=== PATIENT | male | born 1950 | race Caucasian/White ===

== ENCOUNTER 2016-10-13 21:40 | Observation (INO) | payer MEDICAID, OTHER ==
[2016-10-13 21:50] VITALS: BMI 37.8
--- NOTE | 2016-10-13 22:23 | ED PDOC ---
Arrival/HPI - General Chief Complaint: Abdominal Pain Time Seen by Provider: 10/13/16 21:58 Historian: Patient, Family - History of Present Illness Narrative History of Present Illness (Text): 10/13/16 22:17 Stephanie Williamson is a 66 year old male, with a history of hypertension, and diabetes, presents to the emergency department complaining of posterior head pain and left lateral rib/chest pain following a questionable syncopal episode. Patient's son, who accompanied the patient, states that patient called him after a supposed syncopal episode, but patient was unable to recall what happened. There is a superficial abrasion on the back of the head due to possible fall during the syncopal episode. Patient was evaluated by his PMD at [facility] after the incident, but states that symptoms are unresolved. Denies any dizziness, neck pain, difficulty breathing, back pain, abdominal pain, nausea, vomiting, diarrhea, urinary symptoms, or any other complaints at this time. Time/Duration: Other (earlier today ) Symptom Onset: Sudden Symptom Course: Unchanged Severity Level: Mild Past Medical History - Provider Review Nursing Documentation Reviewed: Yes - Infectious Disease Hx of Infectious Diseases: None - Tetanus Immunization Tetanus Immunization: Unknown - Reproductive Currently : No Currently Lactating: No - Cardiac Hx Hypertension: Yes - Pulmonary Hx Respiratory Disorders: No - Neurological Hx Transient Ischemic Attacks (TIA): Yes (r/o pt has speech difficulty) - HEENT Hx HEENT Disorder: No - Renal Hx Renal Disorder: No - Endocrine/Metabolic Hx Endocrine Disorders: Yes ("some type of diabetes") - Hematological/Oncological Hx Blood Disorders: No - Integumentary Hx Dermatological Disorder: No - Musculoskeletal/Rheumatological Hx Arthritis: Yes - Gastrointestinal Hx Gastrointestinal Disorders: No - Genitourinary/Gynecological Hx Genitourinary Disorders: No - Psychiatric Hx Psychophysiologic Disorder: No Hx Substance Use: No - Past Surgical History Past Surgical History: No Previous - Anesthesia Hx Anesthesia: No Hx Anesthesia Reactions: No Hx Malignant Hyperthermia: No - Suicidal Assessment Feels Threatened In Home Enviroment: No Family/Social History - Physician Review Nursing Documentation Reviewed: Yes Family/Social History: No Known Family HX Smoking Status: Never Smoked Hx Alcohol Use: No Hx Substance Use: No Hx Substance Use Treatment: No Allergies/Home Meds Allergies/Adverse Reactions: Allergies No Known Allergies Allergy (Verified 03/11/13 00:30) Review of Systems - Physician Review All systems were reviewed & negative as marked: Yes - Review of Systems Constitutional: Normal. absent: Fatigue, Fevers Respiratory: Normal. absent: SOB, Cough, Sputum Cardiovascular: Chest Pain (left lateral rib pain/ chest pain ). absent: Palpitations Gastrointestinal: absent: Abdominal Pain, Nausea, Vomiting, Appetite Changes Neurological: Other (abrasion on posterior head ). absent: Dizziness, Focal Weakness, Gait Changes, Speech Changes, Facial Droop Psychiatric: Normal Physical Exam Vital Signs Reviewed: Yes Vital Signs Temp Pulse Resp BP Pulse Ox 10/14/16 03:17 78 18 144/95 H 98 10/14/16 01:09 82 16 151/69 H 10/13/16 21:50 97.9 F 122 H 22 168/124 H 96 Temperature: Afebrile Blood Pressure: Hypertensive Pulse: Tachycardic Respiratory Rate: Normal Appearance: Positive for: Well-Appearing, Non-Toxic, Comfortable Pain Distress: None Mental Status: Positive for: Alert and Oriented X 3 - Systems Exam Head: Present: Normocephalic, Abrasion (posterior head ) Pupils: Present: PERRL Conjunctiva: Present: Normal Mouth: Present: Moist Mucous Membranes. No: Dry Neck: Present: Normal Range of Motion. No: MIDLINE TENDERNESS, Paraspinal Tenderness Respiratory/Chest: Present: Clear to Auscultation, Good Air Exchange. No: Respiratory Distress, Accessory Muscle Use Cardiovascular: Present: Regular Rate and Rhythm, Normal S1, S2. No: Murmurs Abdomen: Present: Normal Bowel Sounds. No: Tenderness, Distention, Peritoneal Signs, Rebound, Guarding Back: Present: Normal Inspection. No: CVA Tenderness, Midline Tenderness, Paraspinal Tenderness Upper Extremity: Present: Normal Inspection. No: Cyanosis, Edema Lower Extremity: Present: Normal Inspection. No: Edema Neurological: Present: GCS=15, CN II-XII Intact, Speech Normal, Motor Func Grossly Intact, Normal Sensory Function Skin: Present: Warm, Dry, Normal Color. No: Rashes Psychiatric: Present: Alert, Oriented x 3, Normal Insight, Normal Concentration Medical Decision Making ED Course and Treatment: 10/13/16 22:25 Impression: A 66 year old male who presents to the emergency department complaining of posterior head pain and left sided chest/rib pain s/p questionable syncopal episode case d/w dr grullon and medical doctor for obs Plan: -- CT chest, abdomen, pelvis -- CT Head -- EKG -- Labs, cardiac enzymes -- Alcohol level -- Urinalysis -- Reassess and disposition Progress Notes: 10/13/16 22:31 EKG reviewed by me: Sinus tachycardia @ 116 bpm with occasional premature ventricular complexes. possible left atrial enlargement. Left ventricular hypertrophy. 10/15/16 22:20 - Lab Interpretations Lab Results: 10/13/16 23:10 10/13/16 23:10 Lab Results 10/13/16 23:10: Alcohol, Quantitative < 10 10/13/16 23:10: Sodium 134, Potassium 4.0, Chloride 98, Carbon Dioxide 27, Anion Gap 13, BUN 21, Creatinine 1.2, Est GFR ( Amer) > 60, Est GFR (Non- Af Amer) > 60, Random Glucose 279 H, Calcium 9.5, Phosphorus 3.7, Magnesium 2.0 , Total Bilirubin 0.7, AST 26, ALT 30, Alkaline Phosphatase 103, Lactate Dehydrogenase 557, Total Creatine Kinase 253 H, CK-MB (CK-2) 1.5, CK-MB (CK-2) % Cancelled, Troponin I < 0.01, Total Protein 7.8, Albumin 4.1, Globulin 3.7, Albumin/Globulin Ratio 1.1 10/13/16 23:10: PT 10.7, INR 0.99, APTT 27.3 10/13/16 23:10: WBC 8.9, RBC 5.18, Hgb 14.6, Hct 42.5, MCV 82.0, MCH 28.2, MCHC 34.4, RDW 13.6, Plt Count 249, MPV 8.9, Gran % 71.4 H, Lymph % (Auto) 17.0 L, [place] % (Auto) 10.4 H, Eos % (Auto) 1.0 L, Baso % (Auto) 0.2, Gran # 6.34, Lymph # 1.5, [place] # 0.9 H, Eos # 0.1, Baso # 0.02 10/13/16 21:12: Urine Color Yellow, Urine Appearance Sl cloudy, Urine pH 6.0, Ur Specific [place] 1.025, Urine Protein 30 H, Urine Glucose (UA) >=1000, Urine Ketones Negative, Urine Blood Negative, Urine Nitrate Negative, Urine Bilirubin Negative, Urine Urobilinogen 0.2, Ur Leukocyte Esterase Negative, Urine RBC 0 - 2, Urine WBC 0 - 2, Ur Epithelial Cells 0 - 2, Urine Bacteria Rare I have reviewed the lab results: Yes - RAD Interpretation Narrative RAD Interpretations (Text): EXAM: CT Head Without Intravenous Contrast FINDINGS: Brain: No acute intracranial hemorrhage. Age-appropriate periventricular white matter disease. No edema. Ventricles: Age-appropriate ventriculomegaly. Bones: No acute displaced fracture. Sinuses: Unremarkable as visualized. No acute sinusitis. Mastoid air cells: Unremarkable as visualized. No mastoid effusion. IMPRESSION: No acute intracranial hemorrhage, or suspicious mass effect Dictated and Authenticated by: Nataliia Camacho MD 10/14/16 02:10 EXAM: CT Abdomen and Pelvis Without Intravenous Contrast FINDINGS: Lower thorax: The bilateral lung bases are clear. ABDOMEN: Liver: No acute findings. No perihepatic fluid. Gallbladder and bile ducts: No acute finding. No calcified stones. No intra- extrahepatic biliary ductal dilation. Pancreas: Limited evaluation secondary to the lack of intravenous contrast. No peripancreatic fluid. Spleen: No acute findings. No perisplenic fluid Adrenals: No acute findings. Kidneys and ureters: No obstructing stones. No hydronephrosis. No perinephric fluid. PELVIS: Bladder: No acute findings. Reproductive: No acute findings. ABDOMEN and PELVIS: Stomach and bowel: No acute findings. Large fat containing right inguinal hernia is noted. Peritoneum: No acute findings. Lymph nodes: Limited evaluation without intravenous contrast. Vasculature: No aortic aneurysm. Bones: No acute fracture. Severe degenerative disease is identified within the lower lumbar spine, specifically at the level of L5/S1, with osteophyte formation, disc space narrowing, endplate changes and facet arthropathy. IMPRESSION: No hollow or solid visceral organ injury. Degenerative disease within the lumbar spine. Fat containing right inguinal hernia. EXAM: CT Chest Without Intravenous Contrast FINDINGS: Lungs: No mass. No consolidation. Pleural spaces: No significant effusion. No pneumothorax or hemothorax. Heart: The heart is enlarged, without significant pericardial effusion. Vasculature: The great vessels are intact. No aneurysmal dilatation of the thoracic aortic. Lymph nodes: Scattered lymph nodes within the mediastinum and supraclavicular region, all nonpathologically enlarged, a nonspecific finding. Bones: No acute fractures within either the sternum, ribs or thoracic vertebral bodies. No scapular or clavicular fractures are noted. Cortical thickening and enlargement of the midportion of the sternum is identified, possibly representing prior injury. This is best identified on series 601, image 66 and series 2, image 57. IMPRESSION: No significant intrathoracic injury, as detailed above Dictated and Authenticated by: Nataliia Camacho MD Radiology Orders: 10/13/16 22:26 CHEST,ABDOMEN, PELVIS W/O CONT [CT] Stat HEAD W/O CONTRAST [CT] Stat Driller'S Offsider: Radiologist - Medication Orders Current Medication Orders: Discontinued Medications Acetaminophen (Tylenol 325mg Tab) 650 mg PO Q6H PRN PRN Reason: Pain, Mild (1-3) Atenolol (Tenormin) 100 mg PO DAILY [facility] Last Admin: 10/15/16 10:32 Dose: 100 mg Atorvastatin Calcium (Lipitor) 20 mg PO DIN [facility] Atorvastatin Calcium (Lipitor) 40 mg PO DIN [facility] Last Admin: 10/14/16 16:36 Dose: 40 mg Clopidogrel Bisulfate (Plavix) 75 mg PO DAILY [facility] Last Admin: 10/15/16 10:31 Dose: 75 mg Glipizide (Glucotrol Xl) 5 mg PO DAILY [facility] Last Admin: 10/15/16 10:32 Dose: 5 mg Guaifenesin (Robitussin) 100 mg PO Q4H PRN PRN Reason: Cough Sodium Chloride (Sodium Chloride 0.9%) 1,000 mls @ 60 mls/hr IV .[id number] [facility] Last Admin: 10/14/16 21:37 Dose: 60 mls/hr Insulin Human Regular (Humulin R Low) 0 units SC ACHS [facility] PRN Reason: Protocol Last Admin: 10/15/16 12:24 Dose: 1 units Lisinopril (Zestril) 40 mg PO DAILY [facility] Last Admin: 10/15/16 10:32 Dose: 40 mg Metformin HCl (Glucophage) 850 mg PO BID [facility] Last Admin: 10/15/16 10:30 Dose: 850 mg Morphine Sulfate (Morphine) 1 mg IVP Q4H PRN PRN Reason: Pain, severe (8-10) Last Admin: 10/15/16 04:56 Dose: 1 mg Non-Formulary Medication (Diclofenac Sodium [Diclofenac Sodium D-R]) 75 mg PO DAILY [facility] Non-Formulary Medication (Hydrochlorothiazide/Triamter [Triamterene- Hydrochlorothiazide 25 Mg-37.5 Mg]) 1 tab PO DAILY [facility] Pantoprazole Sodium (Protonix Ec Tab) 40 mg PO 0630 [facility] Last Admin: 10/15/16 05:53 Dose: 40 mg Tramadol HCl (Ultram) 50 mg PO TID PRN PRN Reason: Pain, moderate (4-7) Last Admin: 10/15/16 10:31 Dose: 50 mg Re-Assess: JUANITO Pain Assessment Document 10/15/16 11:31 DEL (Rec: 10/15/16 11:49 DEL [id number]) Pain Reassessment Is this a pain reassessment? Yes Sleep Is patient sleeping during reassessment? No Presence of Pain Presence of Pain No - Scribe Statement The provider has reviewed the documentation as recorded by the Nadia Feliciano Provider Attestation: All medical record entries made by the Nadia were at my direction and personally dictated by me. I have reviewed the chart and agree that the record accurately reflects my personal performance of the history, physical exam, medical decision making, and the department course for this patient. I have also personally directed, reviewed, and agree with the discharge instructions and disposition. Disposition/Present on Arrival - Present on Arrival Any Indicators Present on Arrival: No History of DVT/PE: No History of Uncontrolled Diabetes: No Urinary Catheter: No History of Decub. Ulcer: No History Surgical Site Infection Following: None - Disposition Have Diagnosis and Disposition been Completed?: Yes Diagnosis: Syncope Disposition: HOSPITALIZED Disposition Time: 01:00 Condition: GOOD
[2016-10-13 23:18] LABS: ADD MANUAL DIFF? NO
[2016-10-13 23:24] LABS: BASO # 0.02 K/mm3 (0.0-2.0); BASO % 0.2 % (0.0-3.0); EOS # 0.1 (0.0-0.7); GRAN # 6.34 (1.4-6.5); GRAN % 71.4 % (50.0-68.0); HEMATOCRIT 42.5 % (42.0-52.0); LYMPH # 1.5 (1.2-3.4); MEAN CORPUSCULAR HEMOGLOBIN 28.2 pg (25.0-35.0); MEAN CORPUSCULAR HGB CONC 34.4 g/dl (31.0-37.0); MEAN PLATELET VOLUME 8.9 fl (7.0-11.0); MONO # 0.9 (0.1-0.6); MONO % 10.4 % (1.0-6.0); PLATELET COUNT 249 10^3/uL (120.0-450.0); RED CELL DISTRIBUTION WIDTH 13.6 % (11.5-14.5); WHITE BLOOD COUNT 8.9 10^3/ul (4.5-11.0)
[2016-10-13 23:32] LABS: ALB/GLOB RATIO 1.1 (1.1-1.8); ALKALINE PHOSPHATASE 103 U/L (38-133); ALT/SGPT 30 U/L (7-56); AST/SGOT 26 U/L (15-59); BILIRUBIN,TOTAL 0.7 mg/dL (0.2-1.3); BLOOD UREA NITROGEN 21 mg/dL (7-21); CALCIUM 9.5 mg/dL (8.4-10.5); CARBON DIOXIDE 27 mmol/L (21-33); CHLORIDE 98 mmol/L (98-107); GFR AFRICAN-AMERICAN > 60; GLUCOSE,RANDOM 279 mg/dL (70-110); PHOSPHOROUS 3.7 mg/dL (2.5-4.5); SODIUM 134 mmol/L (132-148); TOTAL PROTEIN 7.8 g/dL (5.8-8.3)
[2016-10-13 23:40] LABS: INR 0.99 (0.93-1.08); PARTIAL THROMBOPLASTIN TIME 27.3 Seconds (23.7-30.8)
[2016-10-13 23:51] LABS: TROPONIN I < 0.01 ng/mL
[2016-10-14 01:24] LABS: URINE BILIRUBIN NEGATIVE (NEGATIVE); URINE BLOOD NEGATIVE (NEGATIVE); URINE GLUCOSE (UA) >=1000 mg/dL (NEGATIVE); URINE KETONE NEGATIVE (NEGATIVE); URINE LEUKOCYTE ESTERASE NEGATIVE Leu/uL (NEGATIVE); URINE PROTEIN 30 mg/dL (<30 mg/dL); URINE UROBILINOGEN 0.2 E.U./dL (<1 E.U./dL)
[2016-10-14 01:25] LABS: URINE APPEARANCE SL CLOUDY (CLEAR); URINE COLOR YELLOW (YELLOW)
[2016-10-14 01:36] LABS: URINE BACTERIA RARE (NEG); URINE EPITHELIAL CELLS 0 - 2 /hpf (0-5); URINE RBC 0 - 2 /hpf (0-2); URINE WBC 0 - 2 /hpf (0-6)
--- NOTE | 2016-10-14 01:50 | CT ---
EXAM: CT Head Without Intravenous Contrast CLINICAL HISTORY: 66 years old, male; Injury or trauma; Fall; Initial encounter; Concussion / head injury TECHNIQUE: Axial computed tomography images of the head/brain without intravenous contrast. This CT exam was performed using one or more of the following dose reduction techniques: automated exposure control, adjustment of the mA and/or kV according to patient size, and/or use of iterative reconstruction technique. COMPARISON: No relevant prior studies available. FINDINGS: Brain: No acute intracranial hemorrhage. Age-appropriate periventricular white matter disease. No edema. Ventricles: Age-appropriate ventriculomegaly. Bones: No acute displaced fracture. Sinuses: Unremarkable as visualized. No acute sinusitis. Mastoid air cells: Unremarkable as visualized. No mastoid effusion. IMPRESSION: No acute intracranial hemorrhage, or suspicious mass effect.
--- NOTE | 2016-10-14 01:58 | CT ---
EXAM: CT Abdomen and Pelvis Without Intravenous Contrast CLINICAL HISTORY: 66 years old, male; Injury or trauma; Fall; Initial encounter; Blunt; Generalized; Blunt trauma (contusions or hematomas) TECHNIQUE: Axial computed tomography images of the abdomen and pelvis without intravenous contrast. This CT exam was performed using one or more of the following dose reduction techniques: automated exposure control, adjustment of the mA and/or kV according to patient size, and/or use of iterative reconstruction technique. Coronal and sagittal reformatted images were created and reviewed. COMPARISON: No relevant prior studies available. FINDINGS: Lower thorax: The bilateral lung bases are clear. ABDOMEN: Liver: No acute findings. No perihepatic fluid. Gallbladder and bile ducts: No acute finding. No calcified stones. No intra-extrahepatic biliary ductal dilation. Pancreas: Limited evaluation secondary to the lack of intravenous contrast. No peripancreatic fluid. Spleen: No acute findings. No perisplenic fluid Adrenals: No acute findings. Kidneys and ureters: No obstructing stones. No hydronephrosis. No perinephric fluid. PELVIS: Bladder: No acute findings. Reproductive: No acute findings. ABDOMEN and PELVIS: Stomach and bowel: No acute findings. Large fat containing right inguinal hernia is noted. Peritoneum: No acute findings. Lymph nodes: Limited evaluation without intravenous contrast. Vasculature: No aortic aneurysm. Bones: No acute fracture. Severe degenerative disease is identified within the lower lumbar spine, specifically at the level of L5/S1, with osteophyte formation, disc space narrowing, endplate changes and facet arthropathy. IMPRESSION: No hollow or solid visceral organ injury. Degenerative disease within the lumbar spine. Fat containing right inguinal hernia. EXAM: CT Chest Without Intravenous Contrast CLINICAL HISTORY: 66 years old, male; Injury or trauma; Fall; Initial encounter; Blunt; Generalized; Blunt trauma (contusions or hematomas) TECHNIQUE: Axial computed tomography images of the chest without intravenous contrast. This CT exam was performed using one or more of the following dose reduction techniques: automated exposure control, adjustment of the mA and/or kV according to patient size, and/or use of iterative reconstruction technique. Coronal and sagittal reformatted images were created and reviewed. COMPARISON: No relevant prior studies available. FINDINGS: Lungs: No mass. No consolidation. Pleural spaces: No significant effusion. No pneumothorax or hemothorax. Heart: The heart is enlarged, without significant pericardial effusion. Vasculature: The great vessels are intact. No aneurysmal dilatation of the thoracic aortic. Lymph nodes: Scattered lymph nodes within the mediastinum and supraclavicular region, all non-pathologically enlarged, a nonspecific finding. Bones: No acute fractures within either the sternum, ribs or thoracic vertebral bodies. No scapular or clavicular fractures are noted. Cortical thickening and enlargement of the midportion of the sternum is identified, possibly representing prior injury. This is best identified on series 601, image 66 and series 2, image 57. IMPRESSION: No significant intrathoracic injury, as detailed above
[2016-10-14] MEDS: Sodium Chloride 0.9% 1,000 ML IV SCH ×2 (05:03→21:37)
--- NOTE | 2016-10-14 05:05 | CP.PCM.HP ---
<Katherine Arzate - Last Filed: 10/14/16 04:41> History of Present Illness - History of Present Illness History of Present Illness: 63 year old Brandi speaking male with past medical history of hypertension, CVA (residual speech difficulties), dyslipidemia and diabetes presents after having a syncope episode this afternoon at 2pm. Patient reports he was shopping at an [employer] grocery store and suddenly lost consciousness and fell backwards. Patient was unable to recall further details. After regaining consciousness, patient start experiencing posterior head pain and left sided rib pain. The pain are worse with motion. He denies of having urinary or fecal incontinence. Patient's son took patient to PMD Dr. Wen soon after. PMD recommended patient to go to the ER to be evaluated. Patient denies weakness, night sweats, recent weight change, fever, chills, shortness of breath, chest pain, abdominal pain, nausea, vomiting, diarrhea, constipation, or urinary symptoms. PMD: Dr. Wen in [place] PMHx: HTN, CVA, dyslipidemia, DM PSHx: denies Allergy: NKDA Social History: Denies tobacco, alcohol or other drug use Family Hx: unknown Home meds: benazepril, glucotrol, lipitor, plavix, tenormin (please verify with Pharmacy) Present on Admission - Present on Admission Any Indicators Present on Admission: No History of DVT/PE: No History of Uncontrolled Diabetes: No Review of Systems - Constitutional Constitutional: As Per HPI. absent: Chills, Fever, Weakness - EENT Eyes: As Per HPI. absent: Blurred Vision, Change in Vision Ears: As Per HPI. absent: Disequilibrium, Dizziness Nose/Mouth/Throat: As Per HPI. absent: Nasal Trauma, Dysphagia, Sore Throat Additional comments: posterior head pain - Cardiovascular Cardiovascular: As Per HPI, Syncope. absent: Chest Pain, Dyspnea, Palpitations , Pedal Edema - Respiratory Respiratory: As Per HPI. absent: Cough, Dyspnea, Hemoptysis, Wheezing - Gastrointestinal Gastrointestinal: As Per HPI. absent: Abdominal Pain, Constipation, Diarrhea, Loose Stools, Nausea, Vomiting - Genitourinary Genitourinary: As Per HPI. absent: Urinary Incontinence, Urinary Frequency, Urinary Hesitance - Musculoskeletal Musculoskeletal: As Per HPI, Other (left sided rib pain). absent: Tingling - Integumentary Integumentary: As Per HPI. absent: Erythema, Pruritus, Swelling - Neurological Neurological: As Per HPI, Syncope. absent: Loss of Vision, Tingling, Tremor, Vertigo, Weakness - Psychiatric Psychiatric: As Per HPI. absent: Anxiety, Irritability - Endocrine Endocrine: As Per HPI - Hematologic/Lymphatic Hematologic: As Per HPI Past Patient History - Infectious Disease Hx of Infectious Diseases: None - Tetanus Immunizations Tetanus Immunization: Unknown - Past Social History Smoking Status: Never Smoked - CARDIAC Hx Hypertension: Yes - PULMONARY Hx Respiratory Disorders: No - NEUROLOGICAL Hx Transient Ischemic Attacks (TIA): Yes (r/o pt has speech difficulty) - HEENT Hx HEENT Problems: No - RENAL Hx Chronic Kidney Disease: No - ENDOCRINE/METABOLIC Hx Endocrine Disorders: Yes ("some type of diabetes") - HEMATOLOGICAL/ONCOLOGICAL Hx Blood Disorders: No - INTEGUMENTARY Hx Dermatological Problems: No - MUSCULOSKELETAL/RHEUMATOLOGICAL Hx Arthritis: Yes - GASTROINTESTINAL Hx Gastrointestinal Disorders: No - GENITOURINARY/GYNECOLOGICAL Hx Genitourinary Disorders: No - PSYCHIATRIC Hx Psychophysiologic Disorder: No Hx Substance Use: No - SURGICAL HISTORY Hx Surgeries: No - ANESTHESIA Hx Anesthesia: No Hx Anesthesia Reactions: No Hx Malignant Hyperthermia: No Meds Allergies/Adverse Reactions: Allergies Allergy/AdvReac Type Severity Reaction Status Date / Time No Known Allergies Allergy Verified 03/11/13 00:30 Physical Exam - Constitutional Appears: Non-toxic, No Acute Distress - Head Exam Head Exam: NORMOCEPHALIC. absent: NORMAL INSPECTION (posterior head erythematous lesion approximately 3''x2'' in size) - Eye Exam Eye Exam: EOMI, Normal appearance, PERRL - ENT Exam ENT Exam: Mucous Membranes Moist - Neck Exam Neck exam: Positive for: Normal Inspection - Respiratory Exam Respiratory Exam: Clear to Auscultation Bilateral, NORMAL BREATHING PATTERN. absent: Rhonchi, Wheezes, Respiratory Distress Additional comments: Left upper rib tenderness, no ecchymosis, no erythema appreciated - Cardiovascular Exam Cardiovascular Exam: REGULAR RHYTHM, RRR, +S1, +S2 - GI/Abdominal Exam GI & Abdominal Exam: Normal Bowel Sounds, Soft. absent: Rigid, Tenderness - Extremities Exam Extremities exam: Positive for: normal capillary refill, normal inspection, pedal pulses present. Negative for: pedal edema - Back Exam Back exam: NORMAL INSPECTION - Neurological Exam Neurological exam: Alert, Oriented x3 - Psychiatric Exam Psychiatric exam: Normal Affect, Normal Mood - Skin Skin Exam: Dry, Warm Results - Vital Signs Recent Vital Signs: Last Vital Signs Temp 97.9 F 10/13/16 21:50 Pulse 78 10/14/16 03:17 Resp 18 10/14/16 03:17 BP 144/95 H 10/14/16 03:17 Pulse Ox 98 10/14/16 03:17 - Labs Result Diagrams: 10/13/16 23:10 10/13/16 23:10 Labs: Laboratory Results - last 24 hr 10/13/16 10/13/16 10/13/16 21:12 23:10 23:10 WBC 8.9 RBC 5.18 Hgb 14.6 Hct 42.5 MCV 82.0 MCH 28.2 MCHC 34.4 RDW 13.6 Plt Count 249 MPV 8.9 Gran % 71.4 H Lymph % (Auto) 17.0 L [place] % (Auto) 10.4 H Eos % (Auto) 1.0 L Baso % (Auto) 0.2 Gran # 6.34 Lymph # 1.5 [place] # 0.9 H Eos # 0.1 Baso # 0.02 PT 10.7 INR 0.99 APTT 27.3 Sodium Potassium Chloride Carbon Dioxide Anion Gap BUN Creatinine Est GFR ( Amer) Est GFR (Non-Af Amer) Random Glucose Calcium Phosphorus Magnesium Total Bilirubin AST ALT Alkaline Phosphatase Lactate Dehydrogenase Total Creatine Kinase CK-MB (CK-2) CK-MB (CK-2) % Troponin I Total Protein Albumin Globulin Albumin/Globulin Ratio Urine Color Yellow Urine Appearance Sl cloudy Urine pH 6.0 Ur Specific [place] 1.025 Urine Protein 30 H Urine Glucose (UA) >=1000 Urine Ketones Negative Urine Blood Negative Urine Nitrate Negative Urine Bilirubin Negative Urine Urobilinogen 0.2 Ur Leukocyte Esterase Negative Urine RBC 0 - 2 Urine WBC 0 - 2 Ur Epithelial Cells 0 - 2 Urine Bacteria Rare Alcohol, Quantitative 10/13/16 10/13/16 23:10 23:10 WBC RBC Hgb Hct MCV MCH MCHC RDW Plt Count MPV Gran % Lymph % (Auto) [place] % (Auto) Eos % (Auto) Baso % (Auto) Gran # Lymph # [place] # Eos # Baso # PT INR APTT Sodium 134 Potassium 4.0 Chloride 98 Carbon Dioxide 27 Anion Gap 13 BUN 21 Creatinine 1.2 Est GFR ( Amer) > 60 Est GFR (Non-Af Amer) > 60 Random Glucose 279 H Calcium 9.5 Phosphorus 3.7 Magnesium 2.0 Total Bilirubin 0.7 AST 26 ALT 30 Alkaline Phosphatase 103 Lactate Dehydrogenase 557 Total Creatine Kinase 253 H CK-MB (CK-2) 1.5 CK-MB (CK-2) % Cancelled Troponin I < 0.01 Total Protein 7.8 Albumin 4.1 Globulin 3.7 Albumin/Globulin Ratio 1.1 Urine Color Urine Appearance Urine pH Ur Specific [place] Urine Protein Urine Glucose (UA) Urine Ketones Urine Blood Urine Nitrate Urine Bilirubin Urine Urobilinogen Ur Leukocyte Esterase Urine RBC Urine WBC Ur Epithelial Cells Urine Bacteria Alcohol, Quantitative < 10 Assessment & Plan - Assessment and Plan (Free Text) Assessment: 66 year old male with past medical history of HTN, CVA, DM presents after having a syncope episode Plan: Syncope -Vasovagal vs cardiogenic vs seizure -CT Head showed no acute intracranial hemorrhage, or suspicious mass effect -CT Chest showed No significant intrahoracic injury (see full report) -CT abd & pelvis showed no visceral organ injury. 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 Fat inguinal hernia. -EKG showed sinus tachycardia 116 bpm, occasional premature ventricular complexes. Left ventricular hypertrophy. -Follow up carotid doppler -Follow up echocardiogram -NS @80ml/hr, follow up labs -Neuro check -Fall risk protocol -Neurology consult, Dr. Larry Jean help appreciated -Cardiology consult, Dr. Grant help appreciated Hypertension -Resume atenolol -Resume lisinopril Dyslipidemia -Resume lipitor DM -Resume glucotrol -ISS -Follow A1C -FS ACHS Hx CVA -Resume plavix -Monitor vitals Prophylactic measures -Protonix of GI ppx -SCD for DVT ppx <Dank Neil - Last Filed: 10/14/16 06:38> Results - Vital Signs Recent Vital Signs: Last Vital Signs Temp 97.9 F 10/13/16 21:50 Pulse 78 10/14/16 03:17 Resp 20 10/14/16 05:23 BP 144/95 H 10/14/16 03:17 Pulse Ox 98 10/14/16 03:17 - Labs Result Diagrams: 10/13/16 23:10 10/13/16 23:10 Attending/Attestation - Attestation I have personally seen and examined this patient.: Yes I have fully participated in the care of the patient.: Yes I have reviewed all pertinent clinical information: Yes Notes (Text): 10/14/16 06:37 Patient was seen when he was in -02. Agree with history , physical examination ,assessment and plan.
[2016-10-14 05:48] VITALS: RESP 20
[2016-10-14] MEDS: Pantoprazole 40 mg EC Tab PO SCH (05:58)
[2016-10-14 08:03] LABS: ADD MANUAL DIFF? NO
[2016-10-14 08:09] LABS: BASO # 0.03 K/mm3 (0.0-2.0); BASO % 0.4 % (0.0-3.0); EOS # 0.2 (0.0-0.7); EOS % 1.9 % (1.5-5.0); GRAN # 5.42 (1.4-6.5); HEMATOCRIT 42.1 % (42.0-52.0); LYMPH # 1.8 (1.2-3.4); MEAN CELL VOLUME 82.4 fL (80.0-105.0); MEAN PLATELET VOLUME 8.9 fl (7.0-11.0); MONO # 0.9 (0.1-0.6); MONO % 10.7 % (1.0-6.0); PLATELET COUNT 249 10^3/uL (120.0-450.0); RED CELL DISTRIBUTION WIDTH 13.7 % (11.5-14.5); WHITE BLOOD COUNT 8.3 10^3/ul (4.5-11.0)
[2016-10-14 08:29] LABS: ALKALINE PHOSPHATASE 105 U/L (38-133); ALT/SGPT 30 U/L (7-56); AST/SGOT 22 U/L (15-59); BILIRUBIN,TOTAL 0.7 mg/dL (0.2-1.3); BLOOD UREA NITROGEN 18 mg/dL (7-21); CALCIUM 9.3 mg/dL (8.4-10.5); CARBON DIOXIDE 26 mmol/L (21-33); CHLORIDE 101 mmol/L (98-107); CHOLESTEROL 189 mg/dL (130-200); GFR AFRICAN-AMERICAN > 60; GLUCOSE,RANDOM 182 mg/dL (70-110); SODIUM 136 mmol/L (132-148); TOTAL PROTEIN 8.1 g/dL (5.8-8.3)
[2016-10-14] MEDS: Insulin Reg-LOW-Coverage SC SCH ×4 (08:44→21:32)
[2016-10-14] MEDS ORDERED: HYDROCHLOROTHIAZIDE PO SCH (10:00)
[2016-10-14] MEDS ORDERED: [UNRECOGNIZED DRUG - OTHER] PO SCH (10:00)
[2016-10-14] MEDS ORDERED: DICLOFENAC SODIUM 75 MG PO SCH (10:00)
[2016-10-14] MEDS ORDERED: TRIAMTERENE PO SCH (10:00)
[2016-10-14] MEDS: GlipiZIDE 5 mg SR Tab PO SCH (11:22)
--- NOTE | 2016-10-14 11:24 | RAD ---
PROCEDURE: Left ribs HISTORY: left rib pain after trauma COMPARISON: TECHNIQUE: Four views FINDINGS: No evidence of displaced rib fracture. No evidence of rib lesion. No pneumothorax IMPRESSION: Negative study
--- NOTE | 2016-10-14 11:31 | US ---
PROCEDURE: Bilateral carotid artery duplex ultrasound HISTORY: Carotid stenosis syncope PHYSICIAN(S): Lauri Santillan MD. TECHNIQUE: Duplex sonography and color-flow Doppler were used to evaluate the carotid bifurcations and limited segments of the vertebral arteries bilaterally. FINDINGS: There is mild smooth hypoechoic plaque noted at the carotid bifurcations bilaterally. The peak systolic velocity in the proximal right internal carotid artery is 94 cm/sec. This corresponds to a 20 to 39% proximal right ICA stenosis. Normal systolic velocities are noted in the proximal right external carotid artery. There is antegrade flow in the right vertebral artery. The peak systolic velocity in the proximal left internal carotid artery is 76 cm/sec. This corresponds to a 20 to 39% proximal left ICA stenosis. Normal systolic velocities are noted in the proximal left external carotid artery. There is antegrade flow in the left vertebral artery. IMPRESSION: 1. Bilateral 20-39% proximal ICA stenoses. 2. Antegrade flow in both vertebral arteries.
[2016-10-14] MEDS: Morphine 2 mg/ml ISec IVP PRN ×2 (17:34→22:54)
--- NOTE | 2016-10-14 19:12 | CON ---
DATE: 10/14/2016 CHIEF COMPLAINT: Syncope. HISTORY OF PRESENT ILLNESS: This is a 66-year-old man with past medical history of hypertensio n, history of TIA in the past, history of dyslipidemia, diabetes, diabetic peripheral neuropathy, had a syncopal episode after shopping at grocery store, suddenly lost consciousness and fell backw ards. He is unable to recall the events. He has no history of seizures, no history of bowel or blad tien incontinence. No history of meningitis or any traumatic brain injury. Currently, his A1c has be en 9.6 indicating poorly controlled diabetes as his carotid Doppler showed 20% to 39% proximal ICA st enosis. CT head showed no acute intracranial abnormality. Currently he is stable and walking around without any difficulties. PAST MEDICAL HISTORY: History of diabetes, hypertension, dyslipidemia, hypertension, TIA. REVIEW OF SYSTEMS: A 14-point review of systems is negative except for the HPI. ALLERGIES: No known drug allergies. MEDICATIONS: Reviewed via nurse's reconciliation sheet. PHYSICAL EXAMINATION: VITAL SIGNS: Temperature of 97.1, pulse rate of 81, blood pressure 144/93, respiratory rate of 20, o xygen saturation of 98% on room air. GENERAL: The patient is sitting up in bed in no acute distress. HEENT: Atraumatic, normocephalic. PERRLA. Extraocular movements intact. NECK: Supple, no JVD, no adenopathy noted. LUNGS: Clear to auscultation. No adventitious sounds. HEART: S1, S2, normal rate and rhythm. No murmurs, rubs, or gallops. ABDOMEN: Soft, nontender, nondistended. Bowel sounds are present. EXTREMITIES: No clubbing, no cyanosis. Peripheral pulses 2+ felt bilaterally. NEUROLOGIC: The patient is alert, oriented to person, place, month and year. Speech is fluent witho ut any errors. Cranial nerves II-XII are intact. MOTOR: Moves all extremities equally. Toes downgoing. SENSORY: Light touch, pinprick, proprioception, vibration. DTRs 2+ throughout. COORDINATION: [id number] intact. Gait is deferred for now. SENSORY: Decreased light touch and pinprick up to the calves . Decreased vibration. Pro prioception intact bilaterally. GAIT: Normal. LABORATORIES: Sodium is 136, potassium 4, chloride 101, carbon dioxide 26, BUN of 18, creatinine 1.2 . Random glucose of 182. A1c is 9.6. ASSESSMENT AND PLAN: This is a 66-year-old man with past medical history of hypertension, history of TIA, diabetes, dyslipidemia, had a syncopal episode. The syncopal episode is most likely vasovagal in nature. He has mild orthostasis from sitting to a standing position, but very mild. Carotid Dopp ler showed 20% to 39% proximal ICA stenosis. A1c is 9.68 indicating poorly controlled diabetes. At this time, I recommend: 1. Plavix 75 mg and Lipitor 40 mg p.o. daily for stroke prevention. 2. Keep his blood sugar between 140-180. 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 3. Keep his blood sugars between 140-180. 4. Keep his blood pressure between 120-130 mmHg and continue with current present medical management . No further neurological workup needed at this time. He is clinically stable from my standpoint. We will sign off. Duane Jean MD cc: [phone] TT: 10/14/2016 19:12:04 Confirmation # [id number] Dictation # [id number]
--- NOTE | 2016-10-14 19:51 | CARD ---
APPROVED REPORT EXAM: Two-dimensional and M-mode echocardiogram with Doppler and color Doppler. INDICATION Syncope 2D DIMENSIONS Left Atrium (2D)3.8 (1.6-4.0cm)IVSd1.1 (0.7-1.1cm) LVDd4.6 (3.9-5.9cm)PWd1.1 (0.7-1.1cm) LVDs3.4 (2.5-4.0cm)FS (%) 26.3 % LVEF (%)51.6 (>50%) M-Mode DIMENSIONS Aortic Root3.10 (2.2-3.7cm)Aortic Cusp Exc.1.60 (1.5-2.0cm) Aortic Valve AoV Peak Oipvpeis337.0cm/Jonah Peak GR.8mmHg Mitral Valve E/A ratio0.0 TDI E/Lateral E'0.0E/Medial E'0.0 Tricuspid Valve TR Peak [id number] [id number] Peak Gr.5mmHg [id number] LEFT VENTRICLE The left ventricle is normal size. There is normal left ventricular wall thickness. The left ventricular function is normal. The left ventricular ejection fraction is within the normal range. There is normal LV segmental wall motion. Transmitral Doppler flow pattern is Grade I-abnormal relaxation pattern. RIGHT VENTRICLE The right ventricle is normal size. There is normal right ventricular wall thickness. The right ventricular systolic function is normal. ATRIA The left atrium size is normal. The right atrium size is normal. AORTIC VALVE The aortic valve is mildly thickened. No aortic regurgitation is present. There is no aortic valvular stenosis. MITRAL VALVE The mitral valve is normal in structure. There is no mitral valve regurgitation noted. TRICUSPID VALVE There is no pulmonary hypertension. GREAT VESSELS The aortic root is normal in size. The IVC is normal in size and collapses >50% with inspiration. PERICARDIAL EFFUSION There is no pericardial effusion. <Conclusion> The left ventricle is normal size. There is normal left ventricular wall thickness. The left ventricular function is normal. The left ventricular ejection fraction is within the normal range. There is normal LV segmental wall motion. Transmitral Doppler flow pattern is Grade I-abnormal relaxation pattern.
[2016-10-14] MEDS ORDERED: guaiFENesin 100 mg/5 ml Syrup UD PO PRN (22:53)
--- NOTE | 2016-10-14 23:00 | CARD ---
APPROVED REPORT EKG Measurement Heart [id number] <Conclusion> Sinus tachycardia with occasional aberrantly conducted APCs Possible Left atrial enlargement Left ventricular hypertrophy Abnormal ECG
--- NOTE | 2016-10-15 04:43 | CP.PCM.PN ---
<Katherine Arzate - Last Filed: 10/15/16 04:38> Subjective - Date & Time of Evaluation Date of Evaluation: 10/15/16 Time of Evaluation: 03:40 - Subjective Subjective: Patient wants to sign out AMA to go home. Stating he feels like he is being held hostage and having difficulty falling asleep. Medication was offered to the patient but refused. Patient's son was informed over the phone. Dangers and risks were explained to the patient extensively but patient still insists on signing AMA. AMA formed was signed at 3:40AM. Attending Dr. Neil informed patient about Holter monitoring is not completed yet and convinced patient to stay until the morning. Objective - Vital Signs/Intake and Output Vital Signs (last 24 hours): Temp Pulse Resp BP Pulse Ox 98.1 F 76 20 125/72 95 10/15/16 00:01 10/15/16 02:00 10/15/16 00:01 10/15/16 00:01 10/14/16 06:00 - Medications Medications: Current Medications Acetaminophen (Tylenol 325mg Tab) 650 mg PO Q6H PRN PRN Reason: Pain, Mild (1-3) Atenolol (Tenormin) 100 mg PO DAILY [facility] Last Admin: 10/14/16 11:23 Dose: 100 mg Atorvastatin Calcium (Lipitor) 40 mg PO DIN [facility] Last Admin: 10/14/16 16:36 Dose: 40 mg Clopidogrel Bisulfate (Plavix) 75 mg PO DAILY [facility] Last Admin: 10/14/16 11:22 Dose: 75 mg Glipizide (Glucotrol Xl) 5 mg PO DAILY [facility] Last Admin: 10/14/16 11:22 Dose: 5 mg Guaifenesin (Robitussin) 100 mg PO Q4H PRN PRN Reason: Cough Sodium Chloride (Sodium Chloride 0.9%) 1,000 mls @ 60 mls/hr IV .[id number] [facility] Last Admin: 10/14/16 21:37 Dose: 60 mls/hr Insulin Human Regular (Humulin R Low) 0 units SC ACHS [facility] PRN Reason: Protocol Last Admin: 10/14/16 21:32 Dose: Not Given Lisinopril (Zestril) 40 mg PO DAILY [facility] Last Admin: 10/14/16 11:23 Dose: 40 mg Morphine Sulfate (Morphine) 1 mg IVP Q4H PRN PRN Reason: Pain, severe (8-10) Last Admin: 10/14/16 22:54 Dose: 1 mg Pantoprazole Sodium (Protonix Ec Tab) 40 mg PO 0630 [facility] Last Admin: 10/14/16 05:58 Dose: 40 mg Tramadol HCl (Ultram) 50 mg PO TID PRN PRN Reason: Pain, moderate (4-7) Last Admin: 10/14/16 16:36 Dose: 50 mg - Labs Labs: 10/14/16 07:40 10/14/16 07:40 PT 10.7 Seconds (9.9-11.8) 10/13/16 23:10 INR 0.99 (0.93-1.08) 10/13/16 23:10 APTT 27.3 Seconds (23.7-30.8) 10/13/16 23:10 <Dank Neil - Last Filed: 10/18/16 06:59> Objective - Vital Signs/Intake and Output Vital Signs (last 24 hours): Temp Pulse Resp BP Pulse Ox 98 F 119 H 20 155/98 H 98 10/15/16 12:00 10/15/16 12:00 10/15/16 12:00 10/15/16 12:00 10/15/16 06:00 - Labs Labs: 10/15/16 05:15 10/15/16 05:15 PT 10.7 Seconds (9.9-11.8) 10/13/16 23:10 INR 0.99 (0.93-1.08) 10/13/16 23:10 APTT 27.3 Seconds (23.7-30.8) 10/13/16 23:10 Attending/Attestation - Attestation I have personally seen and examined this patient.: Yes I have fully participated in the care of the patient.: Yes I have reviewed all pertinent clinical information, including history, physical exam and plan: Yes Notes (Text): 10/18/16 06:59 I had spoken to patient . Convinced him to stay in the hospital. Patient decided not to leave at this time.
[2016-10-15] MEDS: Morphine 2 mg/ml ISec IVP PRN (04:56)
[2016-10-15] MEDS: Pantoprazole 40 mg EC Tab PO SCH (05:53)
[2016-10-15 06:25] LABS: ADD MANUAL DIFF? NO
[2016-10-15 06:33] VITALS: O2SAT 98
[2016-10-15 06:37] LABS: BASO # 0.02 K/mm3 (0.0-2.0); BASO % 0.2 % (0.0-3.0); EOS # 0.1 (0.0-0.7); EOS % 1.1 % (1.5-5.0); GRAN # 7.22 (1.4-6.5); GRAN % 67.1 % (50.0-68.0); HEMATOCRIT 44.1 % (42.0-52.0); LYMPH # 2.4 (1.2-3.4); MEAN CELL VOLUME 84.5 fL (80.0-105.0); MEAN CORPUSCULAR HEMOGLOBIN 27.6 pg (25.0-35.0); MEAN CORPUSCULAR HGB CONC 32.7 g/dl (31.0-37.0); MEAN PLATELET VOLUME 9.2 fl (7.0-11.0); MONO % 9.6 % (1.0-6.0); PLATELET COUNT 272 10^3/uL (120.0-450.0); RED CELL DISTRIBUTION WIDTH 14.1 % (11.5-14.5); WHITE BLOOD COUNT 10.8 10^3/ul (4.5-11.0)
[2016-10-15 06:46] LABS: ALB/GLOB RATIO 1.1 (1.1-1.8); ALKALINE PHOSPHATASE 95 U/L (38-133); ALT/SGPT 33 U/L (7-56); AST/SGOT 25 U/L (15-59); BILIRUBIN,TOTAL 0.7 mg/dL (0.2-1.3); BLOOD UREA NITROGEN 21 mg/dL (7-21); CALCIUM 9.9 mg/dL (8.4-10.5); CARBON DIOXIDE 26 mmol/L (21-33); CHLORIDE 103 mmol/L (98-107); GFR AFRICAN-AMERICAN > 60; GLUCOSE,RANDOM 196 mg/dL (70-110); POTASSIUM 4.7 mmol/L (3.6-5.0); SODIUM 139 mmol/L (132-148); TOTAL PROTEIN 8.3 g/dL (5.8-8.3)
[2016-10-15] MEDS: Insulin Reg-LOW-Coverage SC SCH ×2 (08:11→12:24)
--- NOTE | 2016-10-15 09:53 | CON ---
DATE: 10/15/2016 REQUESTING PHYSICIAN: Nathan Balderas MD. REASON FOR CONSULTATION: Syncope. HISTORY OF PRESENT ILLNESS: This is a 66-year-old man with a history of hypertension and diabetes, w ho presented to the Emergency Room with apparent rib and chest pain following an apparent fall and po ssible syncope. The patient gives a very limited history. He complains of pleuritic-type chest pain this morning. According to the chart, he was accompanied by his son who states that he believes his father had a syncopal event, although the patient cannot recall any details. He is unaware of any p alpitations. He denies any exertional symptoms. He denies any prior cardiac history. He does have a history of hypertension. There is a questionable history of a prior TIA. He apparently also has b orderline diabetes. MEDICATIONS: At home included Dyazide and nonsteroidal anti-inflammatories. ALLERGIES: He has no reported allergies. SOCIAL HISTORY: He does not smoke or drink. He lives with his family. FAMILY HISTORY: Both parents are from cancer. There is no family history of premature hear t disease. REVIEW OF SYSTEMS: A 10-point review of systems is otherwise unremarkable. PHYSICAL EXAMINATION: GENERAL: He is an anxious-appearing middle-aged man. VITAL SIGNS: His blood pressure is 126/86 with a pulse of 70 in sinus. Respirations are 14. He is afebrile. HEENT: Normocephalic, atraumatic. NECK: Supple. No JVD noted. CHEST: A few scattered rhonchi heard. HEART: PMI in normal position. No pathologic gallops noted. ABDOMEN: Soft, nontender. Normoactive bowel sounds. EXTREMITIES: No edema. SKIN: Warm and dry. PSYCHIATRIC: Normal mood and affect. NEUROLOGIC: Alert and oriented x 3. No gross motor or sensory deficits appreciable. DIAGNOSTIC DATA: White count is 10.8, hemoglobin and hematocrit of 14.4 and 44.1 with platelet count 272,000. Potassium 4.7. BUN and creatinine 21 and 1.3. Glucose was initially 193; repeat is 379. Cholesterol 189, LDL 146, HDL 33, and triglycerides 111. Echocardiogram reveals a normal study. Electrocardiogram reveals sinus rhythm with nonspecific ST abnormalities. Rib x-rays were reportedly unremarkable. Carotid ultrasound was performed as well, which revealed mild bilateral ICA stenosis. IMPRESSION: 1. Possible syncope and details unclear. Thus far, his workup has been unremarkable. 2. History of hypertension and apparent diabetes. RECOMMENDATIONS: His current medications will be continued. As his pain appears pleuritic, analgesi c therapy is advised, and eventual screening stress test as an outpatient should be planned given his risk factors, but his current symptoms do not appear anginal in nature. If he has recurrent syncope , a more extensive evaluation can be initiated. Obviously, treatment for his diabetes would be appro priate at this time. Thank you for this consultation. I will be happy to see and follow along as needed. Solomon Carbone MD cc: [id number] TT: 10/15/2016 09:52:32 Confirmation # [id number] Dictation # [id number]
[2016-10-15] MEDS: GlipiZIDE 5 mg SR Tab PO SCH (10:32)
--- NOTE | 2016-10-15 11:34 | CP.PCM.DIS ---
<Daysi Galeano - Last Filed: 10/15/16 11:25> Provider - Provider Date of Admission: 10/14/16 02:55 Attending physician: Nathan Balderas MD Primary care physician: Stephanie Wen MD Consults: Cardio: Dr. Grant Neuro: Dr. Jean Time Spent in preparation of Discharge (in minutes): 45 Hospital Course - Lab Results Lab Results: Most Recent Lab Values WBC 10.8 10^3/ul (4.5-11.0) D 10/15/16 05:15 RBC 5.22 10^6/uL (3.5-6.1) 10/15/16 05:15 Hgb 14.4 gm/dL (14.0-18.0) 10/15/16 05:15 Hct 44.1 % (42.0-52.0) 10/15/16 05:15 MCV 84.5 fL (80.0-105.0) 10/15/16 05:15 MCH 27.6 pg (25.0-35.0) 10/15/16 05:15 MCHC 32.7 g/dl (31.0-37.0) 10/15/16 05:15 RDW 14.1 % (11.5-14.5) 10/15/16 05:15 Plt Count 272 10^3/uL (120.0-450.0) 10/15/16 05:15 MPV 9.2 fl (7.0-11.0) 10/15/16 05:15 Gran % 67.1 % (50.0-68.0) 10/15/16 05:15 Lymph % (Auto) 22.0 % (22.0-35.0) 10/15/16 05:15 [place] % (Auto) 9.6 % (1.0-6.0) H 10/15/16 05:15 Eos % (Auto) 1.1 % (1.5-5.0) L 10/15/16 05:15 Baso % (Auto) 0.2 % (0.0-3.0) 10/15/16 05:15 Gran # 7.22 (1.4-6.5) H 10/15/16 05:15 Lymph # 2.4 (1.2-3.4) 10/15/16 05:15 [place] # 1.0 (0.1-0.6) H 10/15/16 05:15 Eos # 0.1 (0.0-0.7) 10/15/16 05:15 Baso # 0.02 K/mm3 (0.0-2.0) 10/15/16 05:15 PT 10.7 Seconds (9.9-11.8) 10/13/16 23:10 INR 0.99 (0.93-1.08) 10/13/16 23:10 APTT 27.3 Seconds (23.7-30.8) 10/13/16 23:10 Sodium 139 mmol/L (132-148) 10/15/16 05:15 Potassium 4.7 mmol/L (3.6-5.0) 10/15/16 05:15 Chloride 103 mmol/L (98-107) 10/15/16 05:15 Carbon Dioxide 26 mmol/L (21-33) 10/15/16 05:15 Anion Gap 15 (10-20) 10/15/16 05:15 BUN 21 mg/dL (7-21) 10/15/16 05:15 Creatinine 1.3 mg/dL (0.5-1.4) 10/15/16 05:15 Est GFR ( Amer) > 60 10/15/16 05:15 Est GFR (Non-Af Amer) 56 10/15/16 05:15 POC Glucose (mg/dL) 220 mg/dL (65-110) H 10/15/16 11:00 Random Glucose 196 mg/dL (70-110) H 10/15/16 05:15 Hemoglobin A1c 9.6 % (4.2-6.5) H 10/14/16 07:40 Calcium 9.9 mg/dL (8.4-10.5) 10/15/16 05:15 Phosphorus 3.7 mg/dL (2.5-4.5) 10/13/16 23:10 Magnesium 2.0 mg/dL (1.7-2.2) 10/13/16 23:10 Total Bilirubin 0.7 mg/dL (0.2-1.3) 10/15/16 05:15 AST 25 U/L (15-59) 10/15/16 05:15 ALT 33 U/L (7-56) 10/15/16 05:15 Alkaline Phosphatase 95 U/L (38-133) 10/15/16 05:15 Lactate Dehydrogenase 557 U/L (333-699) 10/13/16 23:10 Total Creatine Kinase 253 U/L (35-230) H 10/13/16 23:10 CK-MB (CK-2) 1.5 ng/mL (0.0-3.6) 10/13/16 23:10 CK-MB (CK-2) % Cancelled 10/13/16 23:10 Troponin I < 0.01 ng/mL 10/14/16 14:15 Total Protein 8.3 g/dL (5.8-8.3) 10/15/16 05:15 Albumin 4.4 g/dL (3.0-4.8) 10/15/16 05:15 Globulin 3.9 gm/dL 10/15/16 05:15 Albumin/Globulin Ratio 1.1 (1.1-1.8) 10/15/16 05:15 Triglycerides 111 mg/dL (35-160) 10/14/16 07:40 Cholesterol 189 mg/dL (130-200) 10/14/16 07:40 LDL Cholesterol Direct 146 mg/dL (0-129) H 10/14/16 07:40 HDL Cholesterol 33 mg/dL (29-60) 10/14/16 07:40 Urine Color Yellow (YELLOW) 10/13/16 21:12 Urine Appearance Sl cloudy (CLEAR) 10/13/16 21:12 Urine pH 6.0 (4.7-8.0) 10/13/16 21:12 Ur Specific [place] 1.025 (1.005-1.035) 10/13/16 21:12 Urine Protein 30 mg/dL (<30 mg/dL) H 10/13/16 21:12 Urine Glucose (UA) >=1000 mg/dL (NEGATIVE) 10/13/16 21:12 Urine Ketones Negative mg/dL (NEGATIVE) 10/13/16 21:12 Urine Blood Negative (NEGATIVE) 10/13/16 21:12 Urine Nitrate Negative (NEGATIVE) 10/13/16 21:12 Urine Bilirubin Negative (NEGATIVE) 10/13/16 21:12 Urine Urobilinogen 0.2 E.U./dL (<1 E.U./dL) 10/13/16 21:12 Ur Leukocyte Esterase Negative Ines/uL (NEGATIVE) 10/13/16 21:12 Urine RBC 0 - 2 /hpf (0-2) 10/13/16 21:12 Urine WBC 0 - 2 /hpf (0-6) 10/13/16 21:12 Ur Epithelial Cells 0 - 2 /hpf (0-5) 10/13/16 21:12 Urine Bacteria Rare (NEG) 10/13/16 21:12 Alcohol, Quantitative < 10 mg/dL (0-10) 10/13/16 23:10 - Hospital Course Hospital Course: 63 year old Brandi speaking male with past medical history of hypertension, CVA (residual speech difficulties), dyslipidemia and diabetes presents after having a syncope episode this afternoon at 2pm. Patient reports he was shopping at an [employer] store and suddenly lost consciousness and fell backwards. Patient was unable to recall further details. After regaining consciousness, patient start experiencing posterior head pain and left sided rib pain. The pain are worse with motion. He denies of having urinary or fecal incontinence. Patient's son took patient to PMD Dr. Wen soon after. PMD recommended patient to go to the ER to be evaluated. Patient denies weakness, night sweats, recent weight change, fever, chills, shortness of breath, chest pain, abdominal pain, nausea, vomiting, diarrhea, constipation, or urinary symptoms. Head CT on presentation was negative for acute changes. Patient was complaining of left sided upper quadrant abdominal pain. CT of abdomen/pelvis is negative. Rib series was negative for fracture. Patient had workup for syncope. EKG and Troponins x 3 are negative. Carotid US showed B/L common ICA stenosis 20-39%. This is unchanged from previous carotid US done in 2014. ECHO showed normal left ventricular size, function and EF and thickness and Grade 1 abnormal relaxation pattern. Lipid panel showed elevated LDL at 146 and HgbA1c was 9.6. Patient is non-compliant with his medications and treatments. Patient and son were both explained the importance to medication adherence and following up with PMD and specialists. Patient is to follow up with PMD, Dr. Wen upon discharge. Patient is to follow up with neurologist, Dr. Jean upon discharge. Patient is discharged with the following medications: Lisinopril 40 mg po qd, Glipizide 5 mg po QD, Plavix 75 mg po qd, Lipitor 40 mg po DIN, Atenolol 100 mg po QD, Metformin 850 mg po BID, Protonix 40 mg po qd, Motrin 600 mg po Q8 prn pain. He will also be discharged with a glucometer and lancet strips. Medications and equipment will be delivered to patient before leaving from [facility]. Patient will receive information on how to check his blood sugar at home before discharge. - Date & Time of H&P Date of H&P: 10/15/16 Time of H&P: 11:25 Discharge Exam - Head Exam Head Exam: NORMOCEPHALIC. absent: NORMAL INSPECTION (posterior head erythematous lesion approximately 3''x2'' in size) - Eye Exam Eye Exam: EOMI - ENT Exam ENT Exam: Mucous Membranes Moist - Respiratory Exam Respiratory Exam: Clear to PA & Lateral, NORMAL BREATHING PATTERN. absent: Rales, Rhonchi, Wheezes - Cardiovascular Exam Cardiovascular Exam: REGULAR RHYTHM, +S1, +S2. absent: Diastolic murmur, Gallop , Rubs, Systolic Murmur - GI/Abdominal Exam GI & Abdominal Exam: Normal Bowel Sounds, Soft, Unremarkable. absent: Distended , Firm, Guarding, Rigid, Tenderness - Extremities Exam Additional comments: no edema or tenderness - Neurological Exam Neurological exam: Alert, Oriented x3 - Psychiatric Exam Psychiatric exam: Normal Affect, Normal Mood - Skin Skin Exam: Dry, Intact, Normal Color, Warm Discharge Plan - Discharge Medications Prescriptions: Atenolol [Tenormin] 100 mg PO DAILY #30 tab Atorvastatin [Lipitor] 40 mg PO DIN #30 tab Clopidogrel [Plavix] 75 mg PO DAILY 30 Days GlipiZIDE SR [Glucotrol XL] 5 mg PO DAILY 30 Days Ibuprofen [Motrin] 600 mg PO Q8H PRN #20 tab PRN Reason: pain Lisinopril [Zestril] 40 mg PO DAILY #30 tab metFORMIN [glucOPHAGE] 850 mg PO BID #60 tab Pantoprazole [Protonix EC Tab] 40 mg PO 0630 #30 ect - Follow Up Plan Condition: GOOD Disposition: HOME/ ROUTINE Instructions: Heart Healthy Diet (DC), Syncope (GEN), Diabetes Mellitus Type 2 in Adults (DC), Chronic Hypertension (DC), Hyperlipidemia (DC) Additional Instructions: Patient is to follow up with PMD, Dr. Wen upon discharge. Patient is to follow up with neurologist, Dr. Jean upon discharge. Patient is discharged with the following medications: Lisinopril 40 mg po qd, Glipizide 5 mg po QD, Plavix 75 mg po qd, Lipitor 40 mg po DIN, Atenolol 100 mg po QD, Metformin 850 mg po BID, Protonix 40 mg po qd, Motrin 600 mg po Q8 prn pain. He will also be discharged with a glucometer and lancet strips. Medications and equipment will be delivered to patient before leaving from [facility]. Patient will receive information on how to check his blood sugar at home before discharge. Referrals: Fareed Jean MD [Staff Provider] - Stephanie Wen MD [Primary Care Provider] - <Nathan Balderas - Last Filed: 10/15/16 14:22> Provider - Provider Date of Admission: 10/14/16 02:55 Attending physician: Nathan Balderas MD Primary care physician: Stephanie Wen MD Hospital Course - Lab Results Lab Results: Most Recent Lab Values WBC 10.8 10^3/ul (4.5-11.0) D 10/15/16 05:15 RBC 5.22 10^6/uL (3.5-6.1) 10/15/16 05:15 Hgb 14.4 gm/dL (14.0-18.0) 10/15/16 05:15 Hct 44.1 % (42.0-52.0) 10/15/16 05:15 MCV 84.5 fL (80.0-105.0) 10/15/16 05:15 MCH 27.6 pg (25.0-35.0) 10/15/16 05:15 MCHC 32.7 g/dl (31.0-37.0) 10/15/16 05:15 RDW 14.1 % (11.5-14.5) 10/15/16 05:15 Plt Count 272 10^3/uL (120.0-450.0) 10/15/16 05:15 MPV 9.2 fl (7.0-11.0) 10/15/16 05:15 Gran % 67.1 % (50.0-68.0) 10/15/16 05:15 Lymph % (Auto) 22.0 % (22.0-35.0) 10/15/16 05:15 [place] % (Auto) 9.6 % (1.0-6.0) H 10/15/16 05:15 Eos % (Auto) 1.1 % (1.5-5.0) L 10/15/16 05:15 Baso % (Auto) 0.2 % (0.0-3.0) 10/15/16 05:15 Gran # 7.22 (1.4-6.5) H 10/15/16 05:15 Lymph # 2.4 (1.2-3.4) 10/15/16 05:15 [place] # 1.0 (0.1-0.6) H 10/15/16 05:15 Eos # 0.1 (0.0-0.7) 10/15/16 05:15 Baso # 0.02 K/mm3 (0.0-2.0) 10/15/16 05:15 PT 10.7 Seconds (9.9-11.8) 10/13/16 23:10 INR 0.99 (0.93-1.08) 10/13/16 23:10 APTT 27.3 Seconds (23.7-30.8) 10/13/16 23:10 Sodium 139 mmol/L (132-148) 10/15/16 05:15 Potassium 4.7 mmol/L (3.6-5.0) 10/15/16 05:15 Chloride 103 mmol/L (98-107) 10/15/16 05:15 Carbon Dioxide 26 mmol/L (21-33) 10/15/16 05:15 Anion Gap 15 (10-20) 10/15/16 05:15 BUN 21 mg/dL (7-21) 10/15/16 05:15 Creatinine 1.3 mg/dL (0.5-1.4) 10/15/16 05:15 Est GFR ( Amer) > 60 10/15/16 05:15 Est GFR (Non-Af Amer) 56 10/15/16 05:15 POC Glucose (mg/dL) 220 mg/dL (65-110) H 10/15/16 11:00 Random Glucose 196 mg/dL (70-110) H 10/15/16 05:15 Hemoglobin A1c 9.6 % (4.2-6.5) H 10/14/16 07:40 Calcium 9.9 mg/dL (8.4-10.5) 10/15/16 05:15 Phosphorus 3.7 mg/dL (2.5-4.5) 10/13/16 23:10 Magnesium 2.0 mg/dL (1.7-2.2) 10/13/16 23:10 Total Bilirubin 0.7 mg/dL (0.2-1.3) 10/15/16 05:15 AST 25 U/L (15-59) 10/15/16 05:15 ALT 33 U/L (7-56) 10/15/16 05:15 Alkaline Phosphatase 95 U/L (38-133) 10/15/16 05:15 Lactate Dehydrogenase 557 U/L (333-699) 10/13/16 23:10 Total Creatine Kinase 253 U/L (35-230) H 10/13/16 23:10 CK-MB (CK-2) 1.5 ng/mL (0.0-3.6) 10/13/16 23:10 CK-MB (CK-2) % Cancelled 10/13/16 23:10 Troponin I < 0.01 ng/mL 10/14/16 14:15 Total Protein 8.3 g/dL (5.8-8.3) 10/15/16 05:15 Albumin 4.4 g/dL (3.0-4.8) 10/15/16 05:15 Globulin 3.9 gm/dL 10/15/16 05:15 Albumin/Globulin Ratio 1.1 (1.1-1.8) 10/15/16 05:15 Triglycerides 111 mg/dL (35-160) 10/14/16 07:40 Cholesterol 189 mg/dL (130-200) 10/14/16 07:40 LDL Cholesterol Direct 146 mg/dL (0-129) H 10/14/16 07:40 HDL Cholesterol 33 mg/dL (29-60) 10/14/16 07:40 Urine Color Yellow (YELLOW) 10/13/16 21:12 Urine Appearance Sl cloudy (CLEAR) 10/13/16 21:12 Urine pH 6.0 (4.7-8.0) 10/13/16 21:12 Ur Specific [place] 1.025 (1.005-1.035) 10/13/16 21:12 Urine Protein 30 mg/dL (<30 mg/dL) H 10/13/16 21:12 Urine Glucose (UA) >=1000 mg/dL (NEGATIVE) 10/13/16 21:12 Urine Ketones Negative mg/dL (NEGATIVE) 10/13/16 21:12 Urine Blood Negative (NEGATIVE) 10/13/16 21:12 Urine Nitrate Negative (NEGATIVE) 10/13/16 21:12 Urine Bilirubin Negative (NEGATIVE) 10/13/16 21:12 Urine Urobilinogen 0.2 E.U./dL (<1 E.U./dL) 10/13/16 21:12 Ur Leukocyte Esterase Negative Ines/uL (NEGATIVE) 10/13/16 21:12 Urine RBC 0 - 2 /hpf (0-2) 10/13/16 21:12 Urine WBC 0 - 2 /hpf (0-6) 10/13/16 21:12 Ur Epithelial Cells 0 - 2 /hpf (0-5) 10/13/16 21:12 Urine Bacteria Rare (NEG) 10/13/16 21:12 Alcohol, Quantitative < 10 mg/dL (0-10) 10/13/16 23:10 Attending/Attestation - Attestation I have personally seen and examined this patient.: Yes I have fully participated in the care of the patient.: Yes I have reviewed all pertinent clinical information, including history, physical exam and plan: Yes Notes (Text): 10/15/16 14:19 attending note; Patient seen and examined with resident. Patient is a 66-year-old male admitted with fall. CT head, chest abdomen and pelvis is negative. Rib x-rays negative. Patient has contusion on the left rib area.continue Motrin prn. Chest discomfort; due to fall. Cardiac enzymes negative. Echocardiogram normal. Hypertension; started back on medication. Patient is noncompliance with diet, medication and follow-up. Diabetes; did not take any medications at home. Started on metformin and glipizide. Neurology evaluation with Dr. Jean appreciated. Diagnosis and treatment aamir discussed with patient's son in detail. patient will follow up with PMD . Diagnosis; Fall Uncontrolled diabetes Uncontrolled hypertension history of CVA/dysarthria Noncompliance with follow-up
[2016-10-15 12:11] VITALS: BP 155/98; PULSE 119; TEMP 98
== END 2016-10-15 14:14 | disposition home or self-care (01) ==
LOC: ED 21:40 → ERH 10-14 02:55 → 2RNO 10-14 04:05
PROVIDERS: ADMIT Internal Medicine; ATTEND Internal Medicine
DX: E11.65 Type 2 diabetes mellitus with hyperglycemia (principal); I10 Essential (primary) hypertension; S20.212A Contusion of left front wall of thorax, initial encounter; R55 Syncope and collapse; I69.322 Dysarthria following cerebral infarction; Z91.14 Patient's other noncompliance with medication regimen; Z91.19 Patient's noncompliance with other medical treatment and regimen; E78.5 Hyperlipidemia, unspecified; E11.42 Type 2 diabetes mellitus with diabetic polyneuropathy; I65.23 Occlusion and stenosis of bilateral carotid arteries; R07.81 Pleurodynia; Z91.11 Patient's noncompliance with dietary regimen; W19.XXXA Unspecified fall, initial encounter; Y93.01 Activity, walking, marching and hiking; Y92.512 Supermarket, store or market as the place of occurrence of the external cause; Y99.8 Other external cause status
CPT/HCPCS: 36415; 70450; 71100; 71250; 74176; 80053; 80061; 80320; 81001; 82550; 82553; 82948; 83036; 83615; 83735; 84100; 84484; 85025; 85610; 85730; 93005; 93306; 93880; 96361; 96374; 96376; 97116; 97162; 99285; G0378; G8978; G8979; G8980; J2270; J7040

== ENCOUNTER 2017-04-15 18:14 | Observation (INO) | payer OTHER ==
[2017-04-15 18:15] VITALS: BMI 37.8
--- NOTE | 2017-04-15 19:02 | ED PDOC ---
Arrival/HPI - General Chief Complaint: Weakness/Neurological Deficit Time Seen by Provider: 04/15/17 18:44 Historian: Patient - History of Present Illness Narrative History of Present Illness (Text): 04/15/17 19:09 A 67 year old male, whose past medical history includes hypertension and diabetes, presents to the emergency department complaining of weakness when ambulating. Patient reports when ambulating, patient leans to the left. Patient denies any fever, chills, nausea, vomiting, headache, dizziness, heart attack or stents, abdominal pain, or any other complaints at this time. Also, patient has questionable history of CVA, has no history of drinking or smoking. Patient is non-compliant with diabetes medication. No PMD Past Medical History - Provider Review Nursing Documentation Reviewed: Yes - Infectious Disease Hx of Infectious Diseases: None - Tetanus Immunization Tetanus Immunization: Unknown - Reproductive Currently : No Currently Lactating: No - Cardiac Hx Hypertension: Yes - Pulmonary Hx Respiratory Disorders: No - Neurological HX Cerebrovascular Accident: Yes (x 2) Hx Transient Ischemic Attacks (TIA): Yes (r/o pt has speech difficulty) - HEENT Hx HEENT Disorder: No - Renal Hx Renal Disorder: No - Endocrine/Metabolic Hx Endocrine Disorders: Yes ("some type of diabetes") - Hematological/Oncological Hx Blood Disorders: No - Integumentary Hx Dermatological Disorder: No - Musculoskeletal/Rheumatological Hx Arthritis: Yes - Gastrointestinal Hx Gastrointestinal Disorders: No - Genitourinary/Gynecological Hx Genitourinary Disorders: No - Psychiatric Hx Psychophysiologic Disorder: No Hx Substance Use: No - Past Surgical History Past Surgical History: No Previous - Anesthesia Hx Anesthesia: No Hx Anesthesia Reactions: No Hx Malignant Hyperthermia: No - Suicidal Assessment Feels Threatened In Home Enviroment: No Family/Social History - Physician Review Nursing Documentation Reviewed: Yes Family/Social History: No Known Family HX Smoking Status: Never Smoked Hx Alcohol Use: No Hx Substance Use: No Hx Substance Use Treatment: No Allergies/Home Meds Allergies/Adverse Reactions: Allergies No Known Allergies Allergy (Verified 03/11/13 00:30) Home Medications: Home Meds Medication Instructions Recorded Confirmed No Known Home Med 04/15/17 04/15/17 Review of Systems - Review of Systems Systems not reviewed;Unavailable: Dementia Physical Exam Vital Signs Reviewed: Yes Vital Signs Temp Pulse Resp BP Pulse Ox 04/15/17 20:11 111 H 18 138/86 97 04/15/17 20:08 117 H 18 147/72 96 04/15/17 18:35 98.1 F 112 H 18 141/97 H 96 Temperature: Afebrile Blood Pressure: Normal Pulse: Tachycardic Respiratory Rate: Normal Appearance: Positive for: Ill-Appearing, Other (moderately obese) Pain Distress: None Mental Status: Positive for: Confused, other (normally oriented with time and place) - Systems Exam Head: Present: Atraumatic, Normocephalic Pupils: Present: PERRL Extroacular Muscles: Present: EOMI Conjunctiva: Present: Normal Mouth: Present: Moist Mucous Membranes Neck: Present: Normal Range of Motion Respiratory/Chest: Present: Clear to Auscultation, Good Air Exchange. No: Respiratory Distress, Accessory Muscle Use Cardiovascular: Present: Tachycardic. No: Murmurs Abdomen: Present: Normal Bowel Sounds. No: Tenderness, Distention, Peritoneal Signs Back: Present: Normal Inspection Upper Extremity: Present: Normal Inspection. No: Cyanosis, Edema Lower Extremity: Present: Normal Inspection. No: Edema Neurological: Present: GCS=15, CN II-XII Intact, Speech Normal Skin: Present: Warm, Dry, Normal Color. No: Rashes Psychiatric: Present: Alert, Oriented x 3, Normal Insight, Normal Concentration Medical Decision Making ED Course and Treatment: 04/15/17 19:14 Impression: 67 year old with weakness. Plan: -- EKG -- Head CT -- Chest X-ray -- Labs -- Blood Gas -- Urinalysis -- Blood Culture -- Urine Culture -- Reassess and disposition Prior Visits: Notes and results from previous visits were reviewed. Patient was last seen in the emergency department on 10/13/2016 for posterior head pain and left lateral rib/chest pain. Patient was admitted. Progress Notes: EKG: Ordered, reviewed, and independently interpreted the EKG. Rate : 112 BPM Rhythm : Sinus tachycardia Interpretation : No ST-segment elevations or depressions, no T-wave inversions, normal intervals. Comparison : No previous EKG for comparison. 04/15/17 22:24 pt presenting with Altered mental status, no obvious focal deficits currently. chest x-ray questionable airspace disease however the patient is afebrile and is essentially negative no signs of DKA CT the head is neg due the patient's confusion and hyperglycemia like to admit the patient for altered mental status to rule out TIA vs Metabolic abnormality. pt was given ASA 04/15/17 22:47 - Lab Interpretations Lab Results: 04/15/17 19:31 04/15/17 19:31 Lab Results 04/15/17 20:16: Urine Color Yellow, Urine Appearance Sl cloudy, Urine pH 6.0, Ur Specific [place] 1.025, Urine Protein 30 H, Urine Glucose (UA) >=1000, Urine Ketones Trace H, Urine Blood Trace-intact H, Urine Nitrate Negative, Urine Bilirubin Negative, Urine Urobilinogen 0.2, Ur Leukocyte Esterase Negative, Urine RBC 1 - 3, Urine WBC 2 - 5, Ur Epithelial Cells 3 - 4, Urine Bacteria Mod 04/15/17 19:40: pO2 34, VBG pH 7.35, VBG pCO2 51.0, VBG HCO3 28.2 H, VBG Total CO2 29.8 H, VBG O2 Sat (Calc) 69.3 H, VBG Base Excess 1.7, VBG Potassium 4.2, Glucose 284 H, Lactate 1.5, FiO2 21.0, Sodium 138.0, Chloride 101.0, Venous Blood Potassium 4.2 04/15/17 19:31: Sodium 137, Potassium 4.1, Chloride 101, Carbon Dioxide 29, Anion Gap 11, BUN 18, Creatinine 1.1, Est GFR ( Amer) > 60, Est GFR (Non- Af Amer) > 60, Random Glucose 277 H, Calcium 9.5, Magnesium 2.1, Total Bilirubin 0.6, AST 30, ALT 36, Alkaline Phosphatase 119, Lactate Dehydrogenase 647, Total Creatine Kinase 293 H, CK-MB (CK-2) 1.9, CK-MB (CK-2) % Cancelled, Troponin I 0.01, NT-Pro-B Natriuret Pep 32.4, Total Protein 7.7, Albumin 4.2, Globulin 3.5, Albumin/Globulin Ratio 1.2, Lipase 148 04/15/17 19:31: PT 11.7, INR 1.07, APTT 31.8 04/15/17 19:31: WBC 8.4 D, RBC 5.10, Hgb 14.2, Hct 42.2, MCV 82.7, MCH 27.8, MCHC 33.6, RDW 13.5, Plt Count 226, MPV 9.1, Gran % 73.4 H, Lymph % (Auto) 18.5 L, [place] % (Auto) 6.7 H, Eos % (Auto) 1.0 L, Baso % (Auto) 0.4, Gran # 6.16, Lymph # 1.6, [place] # 0.6, Eos # 0.1, Baso # 0.03 I have reviewed the lab results: Yes Interpretation: Abnormal lab values (hyperglycemia) - RAD Interpretation Radiology Orders: 04/15/17 18:44 X-RAY [CHEST PORTABLE] [RAD] Stat 04/15/17 18:45 HEAD W/O CONTRAST [CT] Stat [employer] Equipment Operator: ED Physician - Medication Orders Current Medication Orders: Discontinued Medications Aspirin (Aspirin Chewable) 324 mg PO STAT STA Stop: 04/15/17 22:25 Last Admin: 04/15/17 22:34 Dose: 324 mg - Scribe Statement The provider has reviewed the documentation as recorded by the Nadia Mclaughlin Provider Scribe Attestation: All medical record entries made by the Nadia were at my direction and personally dictated by me. I have reviewed the chart and agree that the record accurately reflects my personal performance of the history, physical exam, medical decision making, and the department course for this patient. I have also personally directed, reviewed, and agree with the discharge instructions and disposition. Disposition/Present on Arrival - Present on Arrival Any Indicators Present on Arrival: Yes History of DVT/PE: No History of Uncontrolled Diabetes: Yes Urinary Catheter: No History of Decub. Ulcer: No History Surgical Site Infection Following: None - Disposition Have Diagnosis and Disposition been Completed?: Yes Diagnosis: TIA (transient ischemic attack) Disposition: HOSPITALIZED Disposition Time: 22:48 Patient Plan: Observation, Telemetry Condition: IMPROVED Referrals: Len Wen MD [Primary Care Provider] - Follow up with primary Forms: Leevia (Persian)
[2017-04-15 19:45] LABS: BASO # 0.03 K/mm3 (0.0-2.0); BASO % 0.4 % (0.0-3.0); EOS # 0.1 (0.0-0.7); GRAN # 6.16 (1.4-6.5); GRAN % 73.4 % (50.0-68.0); HEMATOCRIT 42.2 % (42.0-52.0); LYMPH # 1.6 (1.2-3.4); LYMPH % 18.5 % (22.0-35.0); MEAN CELL VOLUME 82.7 fl (80.0-105.0); MEAN CORPUSCULAR HEMOGLOBIN 27.8 pg (25.0-35.0); MEAN CORPUSCULAR HGB CONC 33.6 g/dl (31.0-37.0); MEAN PLATELET VOLUME 9.1 fl (7.0-11.0); MONO # 0.6 (0.1-0.6); MONO % 6.7 % (1.0-6.0); RED CELL DISTRIBUTION WIDTH 13.5 % (11.5-14.5); WHITE BLOOD COUNT 8.4 10^3/ul (4.5-11.0)
[2017-04-15 19:51] LABS: VENOUS BLOOD GAS BASE EXCESS 1.7 mmol/L (0.0-2.0); VENOUS BLOOD PH 7.35 (7.32-7.43)
[2017-04-15 19:58] LABS: INR 1.07 (0.93-1.08); PARTIAL THROMBOPLASTIN TIME 31.8 Seconds (25.1-36.5)
[2017-04-15 20:06] LABS: ALB/GLOB RATIO 1.2 (1.1-1.8); ALKALINE PHOSPHATASE 119 U/L (38-126); ALT/SGPT 36 U/L (7-56); AST/SGOT 30 U/L (17-59); BILIRUBIN,TOTAL 0.6 mg/dL (0.2-1.3); BLOOD UREA NITROGEN 18 mg/dL (7-21); CALCIUM 9.5 mg/dL (8.4-10.5); CARBON DIOXIDE 29 mmol/L (21-33); CHLORIDE 101 mmol/L (98-107); GFR AFRICAN-AMERICAN > 60; GLUCOSE,RANDOM 277 mg/dL (70-110); LIPASE 148 U/L (23-300); MAGNESIUM 2.1 mg/dL (1.7-2.2); POTASSIUM 4.1 mmol/L (3.6-5.0); SODIUM 137 mmol/L (132-148); TOTAL PROTEIN 7.7 g/dL (5.8-8.3)
[2017-04-15 20:13] LABS: TROPONIN I 0.01 ng/mL
[2017-04-15 20:41] LABS: URINE BILIRUBIN NEGATIVE (NEGATIVE); URINE BLOOD TRACE-INTACT (NEGATIVE); URINE GLUCOSE (UA) >=1000 mg/dL (NEGATIVE); URINE KETONE TRACE mg/dL (NEGATIVE); URINE LEUKOCYTE ESTERASE NEGATIVE Leu/uL (NEGATIVE); URINE PROTEIN 30 mg/dL (<30 mg/dL); URINE UROBILINOGEN 0.2 E.U./dL (<1 E.U./dL)
[2017-04-15 20:47] LABS: URINE APPEARANCE SL CLOUDY (CLEAR); URINE COLOR YELLOW (YELLOW)
[2017-04-15 21:13] LABS: URINE BACTERIA MOD (NEG)
--- NOTE | 2017-04-15 22:19 | CT ---
EXAM: CT Head Without Intravenous Contrast CLINICAL HISTORY: 67 years old, male; Signs and symptoms; Altered mental status/memory loss; Other: Not specified; Patient HX: HX CVA (x2), HX TIA speech difficulty TECHNIQUE: Axial computed tomography images of the head/brain without intravenous contrast. All CT scans at this facility use one or more dose reduction techniques, viz.: automated exposure control; ma/kV adjustment per patient size (including targeted exams where dose is matched to indication; i.e. head); or iterative reconstruction technique. COMPARISON: CT - HEAD W/O CONTRAST 2016-10-14 01:26 FINDINGS: Brain: No acute intracranial hemorrhage. Age-appropriate periventricular white matter disease. No edema. Ventricles: Age-appropriate ventriculomegaly. Bones: No acute displaced fracture. Sinuses: Unremarkable as visualized. No acute sinusitis. Mastoid air cells: Unremarkable as visualized. No mastoid effusion. IMPRESSION: No acute intracranial hemorrhage, or suspicious mass effect.
[2017-04-15] MEDS ORDERED: Sodium Chloride 0.9% 1,000 ML IV SCH (23:45)
--- NOTE | 2017-04-15 23:50 | CP.PCM.HP ---
<HuntWagnerMinisterio - Last Filed: 04/16/17 00:10> History of Present Illness - History of Present Illness History of Present Illness: 67 year old male with past medical history of HTN, HLD, questionable diabetes, CVA with residual slurred speech presents to the ED because of a fall. Patient states he was walking in the hallway at home this evening when his foot got caught on a raised area on the floor and subsequently fell. He denied hitting his head, feeling dizzy, or losing consciousness. He states he was able to get himself up and proceed normally. When his son came home he told him about the fall and his son decided to bring him into the hospital. Patient denies any chest pain, shortness of breath, nausea, vomiting, fever, chills, or any other complaints at this time. Primary Doctor: Dr. Wen Past Medical History: HTN, HLD, questionable diabetes, CVA with residual slurred speech Past Surgical History: denies Allergies: denies Family History: denies Social: quit tobacco use in 1983, denies alcohol or illicit drug use Home medications: several medications for HTN, does not recall Present on Admission - Present on Admission Any Indicators Present on Admission: No Review of Systems - Constitutional Constitutional: absent: Anorexia, Chills, Excessive Sweating, Fever, Headache - EENT Eyes: absent: Blurred Vision, Change in Vision Ears: absent: Disequilibrium, Dizziness Nose/Mouth/Throat: absent: Nasal Congestion, Sore Throat - Cardiovascular Cardiovascular: absent: Chest Pain, Dyspnea, Pain Radiating to Arm/Neck/Jaw, Palpitations, Radiating Pain, Rapid Heart Rate - Respiratory Respiratory: absent: Cough, Dyspnea - Gastrointestinal Gastrointestinal: absent: Abdominal Pain, Constipation, Diarrhea, Nausea - Genitourinary Genitourinary: absent: Change in Urinary Stream, Difficulty Urinating - Musculoskeletal Musculoskeletal: absent: Arthralgias, Numbness, Stiffness, Tingling - Integumentary Integumentary: absent: Sores, Wounds - Neurological Neurological: absent: Abnormal Hearing, Dizziness, Headaches, Loss of Vision, Paresthesias, Syncope, Tingling Past Patient History - Infectious Disease Hx of Infectious Diseases: None - Tetanus Immunizations Tetanus Immunization: Unknown - Past Social History Smoking Status: Never Smoked - CARDIAC Hx Hypertension: Yes - PULMONARY Hx Respiratory Disorders: No - NEUROLOGICAL HX Cerebrovascular Accident: Yes (x 2) Hx Transient Ischemic Attacks (TIA): Yes (r/o pt has speech difficulty) - HEENT Hx HEENT Problems: No - RENAL Hx Chronic Kidney Disease: No - ENDOCRINE/METABOLIC Hx Endocrine Disorders: Yes ("some type of diabetes") - HEMATOLOGICAL/ONCOLOGICAL Hx Blood Disorders: No - INTEGUMENTARY Hx Dermatological Problems: No - MUSCULOSKELETAL/RHEUMATOLOGICAL Hx Arthritis: Yes - GASTROINTESTINAL Hx Gastrointestinal Disorders: No - GENITOURINARY/GYNECOLOGICAL Hx Genitourinary Disorders: No - PSYCHIATRIC Hx Psychophysiologic Disorder: No Hx Substance Use: No - SURGICAL HISTORY Hx Surgeries: No - ANESTHESIA Hx Anesthesia: No Hx Anesthesia Reactions: No Hx Malignant Hyperthermia: No Meds Allergies/Adverse Reactions: Allergies Allergy/AdvReac Type Severity Reaction Status Date / Time No Known Allergies Allergy Verified 03/11/13 00:30 Physical Exam - Constitutional Appears: Non-toxic, No Acute Distress - Head Exam Head Exam: ATRAUMATIC, NORMAL INSPECTION, NORMOCEPHALIC - Eye Exam Eye Exam: EOMI, Normal appearance, PERRL Pupil Exam: NORMAL ACCOMODATION, PERRL - ENT Exam ENT Exam: Mucous Membranes Moist, Normal Exam - Neck Exam Neck exam: Positive for: Normal Inspection - Respiratory Exam Respiratory Exam: Clear to Auscultation Bilateral, NORMAL BREATHING PATTERN - Cardiovascular Exam Cardiovascular Exam: Tachycardia, +S1, +S2 - GI/Abdominal Exam GI & Abdominal Exam: Normal Bowel Sounds. absent: Tenderness - Extremities Exam Extremities exam: Positive for: normal inspection, pedal pulses present - Neurological Exam Neurological exam: Alert, CN II-XII Intact, Oriented x3 Additional comments: upper and lower motor strength 5/5, sensory intact bilaterally upper and lower - Skin Skin Exam: Normal Color Results - Vital Signs Recent Vital Signs: Last Vital Signs Temp 98.1 F 04/15/17 18:35 Pulse 111 H 04/15/17 20:11 Resp 18 04/15/17 20:11 BP 138/86 04/15/17 20:11 Pulse Ox 97 04/15/17 20:11 - Labs Result Diagrams: 04/15/17 19:31 04/15/17 19:31 Assessment & Plan - Assessment and Plan (Free Text) Assessment: 67 year old male with past medical history of HTN, HLD, questionable diabetes, CVA with residual slurred speech presents to the ED because of a fall. Plan: 1. Fall-Mechanical v TIA v CVA -EKG ordered and obtained, sinus tachy, no ST chnages, pending official read -CT head negative for any acute changes -CBC and CMP ordered and reviewed, within normal limits -initial tropnin negative, will follow serial x2 -No focal deficits appreciated at this time -NIHSS Score in the ED: 0 -Neurology consulted, Fernando, will follow recs -fall precautions -Head of bed >30 degrees -aspirin 81 -lipitor 20 -TSH pending -A1C pending -Lipid panel pending -Vitals Q4H -orthostatics pending -NS@75 2. HTN -138/86 -started on Lisinopril 20mg -Labetalol 100 TID, PRN if SBP>160 -continue to monitor 3. DM -glucose 284 -Insulin Sliding scale medium with accuchecks -A1C pending 4. HLD -lipid panel pending -Lipitor 20mg GI/DVT Prophylaxis -Protonix -Lovenox <Reny MAURER,Wilber - Last Filed: 04/16/17 09:02> Results - Vital Signs Recent Vital Signs: Last Vital Signs Temp 98.5 F 04/16/17 06:00 Pulse 101 H 04/16/17 06:00 Resp 19 04/16/17 06:00 BP 135/79 04/16/17 06:00 Pulse Ox 96 04/16/17 06:00 - Labs Result Diagrams: 04/16/17 05:30 04/16/17 05:30 Labs: Laboratory Results - last 24 hr 04/16/17 04/16/17 04/16/17 05:30 05:30 05:30 WBC 6.6 D RBC 4.87 Hgb 13.5 L Hct 40.1 L MCV 82.3 MCH 27.7 MCHC 33.7 RDW 13.6 Plt Count 217 MPV 8.9 Gran % 68.4 H Lymph % (Auto) 20.7 L Snyder % (Auto) 9.2 H Eos % (Auto) 1.4 L Baso % (Auto) 0.3 Gran # 4.53 Lymph # 1.4 Snyder # 0.6 Eos # 0.1 Baso # 0.02 Sodium 137 Potassium 3.7 Chloride 106 Carbon Dioxide 21 Anion Gap 14 BUN 16 Creatinine 1.0 Est GFR ( Amer) > 60 Est GFR (Non-Af Amer) > 60 Random Glucose 241 H Calcium 9.1 Total Bilirubin 0.6 AST 27 ALT 45 Alkaline Phosphatase 108 Troponin I 0.02 D Total Protein 7.1 Albumin 3.7 Globulin 3.4 Albumin/Globulin Ratio 1.1 Triglycerides 133 Cholesterol 181 LDL Cholesterol Direct 129 HDL Cholesterol 33 TSH 3rd Generation 1.53 Attending/Attestation - Attestation I have personally seen and examined this patient.: Yes I have fully participated in the care of the patient.: Yes I have reviewed all pertinent clinical information: Yes Notes (Text): -I agree with the above H&P completed by the resident physician with the following additions and/or changes: -The patient is a 67 year old man with a history of CVA (with reported residual slurred speech), DL and HTN who is being admitted for observation due to TIA vs CVA vs Presyncope. Of note, old records indicate that patient has residual slurred speech from a previous CVA. However, the patient adamantly denies having any history of residual slurred speech. On examination, the patient does appear to have some level of slurred speech. Therefore, due to conflicting stories by the patient and previous records as well as the patient's multiple CVS risk factors, he will be admitted for rule out CVA and neurological consultation. We will place him on baby ASA and Q4 hour neuro checks. Also will check orthostatics.
[2017-04-16] MEDS ORDERED: Pantoprazole 40 mg EC Tab PO SCH (06:00)
[2017-04-16 06:32] LABS: BASO # 0.02 K/mm3 (0.0-2.0); BASO % 0.3 % (0.0-3.0); EOS # 0.1 (0.0-0.7); EOS % 1.4 % (1.5-5.0); GRAN # 4.53 (1.4-6.5); GRAN % 68.4 % (50.0-68.0); HEMATOCRIT 40.1 % (42.0-52.0); LYMPH # 1.4 (1.2-3.4); LYMPH % 20.7 % (22.0-35.0); MEAN CELL VOLUME 82.3 fl (80.0-105.0); MEAN CORPUSCULAR HEMOGLOBIN 27.7 pg (25.0-35.0); MEAN CORPUSCULAR HGB CONC 33.7 g/dl (31.0-37.0); MEAN PLATELET VOLUME 8.9 fl (7.0-11.0); MONO # 0.6 (0.1-0.6); MONO % 9.2 % (1.0-6.0); RED CELL DISTRIBUTION WIDTH 13.6 % (11.5-14.5); WHITE BLOOD COUNT 6.6 10^3/ul (4.5-11.0)
[2017-04-16 07:13] LABS: TROPONIN I 0.02 ng/mL
[2017-04-16 07:16] VITALS: RESP 19; TEMP 98.5; O2SAT 96
[2017-04-16] MEDS ORDERED: Insulin Lispro (humaLOG) LOW Coverage SC SCH (07:30)
[2017-04-16] MEDS ORDERED: Insulin Lispro (humaLOG) MEDIUM Coverage SC SCH (07:30)
[2017-04-16 07:34] LABS: ALB/GLOB RATIO 1.1 (1.1-1.8); ALKALINE PHOSPHATASE 108 U/L (38-126); ALT/SGPT 45 U/L (7-56); AST/SGOT 27 U/L (17-59); BILIRUBIN,TOTAL 0.6 mg/dL (0.2-1.3); BLOOD UREA NITROGEN 16 mg/dL (7-21); CALCIUM 9.1 mg/dL (8.4-10.5); CARBON DIOXIDE 21 mmol/L (21-33); CHLORIDE 106 mmol/L (98-107); CHOLESTEROL 181 mg/dL (130-200); GFR AFRICAN-AMERICAN > 60; GLUCOSE,RANDOM 241 mg/dL (70-110); POTASSIUM 3.7 mmol/L (3.6-5.0); SODIUM 137 mmol/L (132-148); TOTAL PROTEIN 7.1 g/dL (5.8-8.3)
[2017-04-16] MEDS ORDERED: Iohexol 350 MG/100 ML VIAL ONE (07:36)
[2017-04-16] MEDS ORDERED: Potassium Chloride 20 mEq ER Tab PO ONE (07:41)
--- NOTE | 2017-04-16 08:35 | RAD ---
HISTORY: altered mental status COMPARISON: 03/07/2014. FINDINGS: LUNGS: There is mild pulmonary venous congestion. There is bibasilar atelectasis. PLEURA: No significant pleural effusion identified, no pneumothorax apparent. CARDIOVASCULAR: Normal. OSSEOUS STRUCTURES: No significant abnormalities. VISUALIZED UPPER ABDOMEN: Normal. OTHER FINDINGS: None. IMPRESSION: Pulmonary venous congestion and bibasilar atelectasis.
[2017-04-16 09:29] VITALS: BP 152/99
[2017-04-16] MEDS ORDERED: Enoxaparin 40 mg Syringe SC SCH (10:00)
[2017-04-16 12:10] VITALS: PULSE 106
--- NOTE | 2017-04-16 13:55 | PCM.EEG ---
Electroencephalogram Report - Electroencephalogram Report Procedure Date: 04/16/17 Interpretation: Indication: Fall. Medications were reviewed. Technical: This is a digitally recorded electroencephalogram. The international 10-20 electrode placement system is used for scalp electrode placement. Eighteen channels of scalp EEG are recorded One channel was used for EOG. Another channel was used for for ECG. The data are stored digitally and reviewed in reformatted montages for optimal display. Background: 9 to 10 hertz alpha activity was seen. Maximal over the posterior head region. These activities are symmetric on both sides. They attenuated with eye opening. Small amount of beta activities are seen. Description: No focal slowing was seen. No seizure like activity was observed during this recording. Patient entered into periods of drowsiness and light sleep. No abnormality was seen. Impression: Normal EEG. No focal slowing no seizure like activity was observed. Correlation with clinical findings is needed.
--- NOTE | 2017-04-16 14:14 | CP.PCM.DIS ---
<Louie Brooks - Last Filed: 04/16/17 14:07> Provider - Provider Date of Admission: 04/15/17 22:48 Attending physician: Erlin Saxena MD Primary care physician: Len Wen MD Consults: Neuro: [place] Time Spent in preparation of Discharge (in minutes): 45 Hospital Course - Lab Results Lab Results: Most Recent Lab Values WBC 6.6 10^3/ul (4.5-11.0) D 04/16/17 05:30 RBC 4.87 10^6/uL (3.5-6.1) 04/16/17 05:30 Hgb 13.5 g/dL (14.0-18.0) L 04/16/17 05:30 Hct 40.1 % (42.0-52.0) L 04/16/17 05:30 MCV 82.3 fl (80.0-105.0) 04/16/17 05:30 MCH 27.7 pg (25.0-35.0) 04/16/17 05:30 MCHC 33.7 g/dl (31.0-37.0) 04/16/17 05:30 RDW 13.6 % (11.5-14.5) 04/16/17 05:30 Plt Count 217 10^3/uL (120.0-450.0) 04/16/17 05:30 MPV 8.9 fl (7.0-11.0) 04/16/17 05:30 Gran % 68.4 % (50.0-68.0) H 04/16/17 05:30 Lymph % (Auto) 20.7 % (22.0-35.0) L 04/16/17 05:30 [place] % (Auto) 9.2 % (1.0-6.0) H 04/16/17 05:30 Eos % (Auto) 1.4 % (1.5-5.0) L 04/16/17 05:30 Baso % (Auto) 0.3 % (0.0-3.0) 04/16/17 05:30 Gran # 4.53 (1.4-6.5) 04/16/17 05:30 Lymph # 1.4 (1.2-3.4) 04/16/17 05:30 [place]son # 0.6 (0.1-0.6) 04/16/17 05:30 Eos # 0.1 (0.0-0.7) 04/16/17 05:30 Baso # 0.02 K/mm3 (0.0-2.0) 04/16/17 05:30 PT 11.7 SECONDS (9.4-12.5) 04/15/17 19:31 INR 1.07 (0.93-1.08) 04/15/17 19:31 APTT 31.8 Seconds (25.1-36.5) 04/15/17 19:31 pO2 34 mm/Hg (30-55) 04/15/17 19:40 VBG pH 7.35 (7.32-7.43) 04/15/17 19:40 VBG pCO2 51.0 (40-60) 04/15/17 19:40 VBG HCO3 28.2 mmol/l (21-28) H 04/15/17 19:40 VBG Total CO2 29.8 mmol.L (22-28) H 04/15/17 19:40 VBG O2 Sat (Calc) 69.3 % (40-65) H 04/15/17 19:40 VBG Base Excess 1.7 mmol/L (0.0-2.0) 04/15/17 19:40 VBG Potassium 4.2 mmol/L (3.6-5.2) 04/15/17 19:40 Sodium 138.0 mmol/L (132-148) 04/15/17 19:40 Chloride 101.0 mmol/L (98-107) 04/15/17 19:40 Glucose 284 mg/dl (75-110) H 04/15/17 19:40 Lactate 1.5 mmol/L (0.7-2.1) 04/15/17 19:40 FiO2 21.0 % 04/15/17 19:40 Sodium 137 mmol/L (132-148) 04/16/17 05:30 Potassium 3.7 mmol/L (3.6-5.0) 04/16/17 05:30 Chloride 106 mmol/L (98-107) 04/16/17 05:30 Carbon Dioxide 21 mmol/L (21-33) 04/16/17 05:30 Anion Gap 14 (10-20) 04/16/17 05:30 BUN 16 mg/dL (7-21) 04/16/17 05:30 Creatinine 1.0 mg/dl (0.8-1.5) 04/16/17 05:30 Est GFR ( Amer) > 60 04/16/17 05:30 Est GFR (Non-Af Amer) > 60 04/16/17 05:30 Random Glucose 241 mg/dL (70-110) H 04/16/17 05:30 Hemoglobin A1c 12.9 % (4.2-6.5) H D 04/16/17 05:30 Calcium 9.1 mg/dL (8.4-10.5) 04/16/17 05:30 Magnesium 2.1 mg/dL (1.7-2.2) 04/15/17 19:31 Total Bilirubin 0.6 mg/dL (0.2-1.3) 04/16/17 05:30 AST 27 U/L (17-59) 04/16/17 05:30 ALT 45 U/L (7-56) 04/16/17 05:30 Alkaline Phosphatase 108 U/L (38-126) 04/16/17 05:30 Lactate Dehydrogenase 647 U/L (333-699) 04/15/17 19:31 Total Creatine Kinase 293 U/L (35-230) H 04/15/17 19:31 CK-MB (CK-2) 1.9 ng/mL (0.0-3.6) 04/15/17 19:31 CK-MB (CK-2) % Cancelled 04/15/17 19:31 Troponin I 0.02 ng/mL D 04/16/17 05:30 C-React Prot High Sens 9.35 mg/L (1.00-3.00) H 04/16/17 08:20 NT-Pro-B Natriuret Pep 32.4 pg/mL (0-450) 04/15/17 19:31 Total Protein 7.1 g/dL (5.8-8.3) 04/16/17 05:30 Albumin 3.7 g/dL (3.0-4.8) 04/16/17 05:30 Globulin 3.4 gm/dL 04/16/17 05:30 Albumin/Globulin Ratio 1.1 (1.1-1.8) 04/16/17 05:30 Triglycerides 133 mg/dL (35-160) 04/16/17 05:30 Cholesterol 181 mg/dL (130-200) 04/16/17 05:30 LDL Cholesterol Direct 129 mg/dL (0-129) 04/16/17 05:30 HDL Cholesterol 33 mg/dL (29-60) 04/16/17 05:30 Lipase 148 U/L (23-300) 04/15/17 19:31 Vitamin B12 391 pg/mL (239-931) 04/16/17 08:20 25-OH Vitamin D Total 19.4 NG/ML (30.0-100.0) L 04/16/17 08:20 TSH 3rd Generation 1.53 mIU/mL (0.46-4.68) 04/16/17 05:30 Venous Blood Potassium 4.2 mmol/L (3.6-5.2) 04/15/17 19:40 Urine Color Yellow (YELLOW) 04/15/17 20:16 Urine Appearance Sl cloudy (CLEAR) 04/15/17 20:16 Urine pH 6.0 (4.7-8.0) 04/15/17 20:16 Ur Specific [place] 1.025 (1.005-1.035) 04/15/17 20:16 Urine Protein 30 mg/dL (<30 mg/dL) H 04/15/17 20:16 Urine Glucose (UA) >=1000 mg/dL (NEGATIVE) 04/15/17 20:16 Urine Ketones Trace mg/dL (NEGATIVE) H 04/15/17 20:16 Urine Blood Trace-intact (NEGATIVE) H 04/15/17 20:16 Urine Nitrate Negative (NEGATIVE) 04/15/17 20:16 Urine Bilirubin Negative (NEGATIVE) 04/15/17 20:16 Urine Urobilinogen 0.2 E.U./dL (<1 E.U./dL) 04/15/17 20:16 Ur Leukocyte Esterase Negative Ines/uL (NEGATIVE) 04/15/17 20:16 Urine RBC 1 - 3 /hpf (0-2) 04/15/17 20:16 Urine WBC 2 - 5 /hpf (0-6) 04/15/17 20:16 Ur Epithelial Cells 3 - 4 /hpf (0-5) 04/15/17 20:16 Urine Bacteria Mod (NEG) 04/15/17 20:16 - Hospital Course Hospital Course: 67 year old male with past medical history of HTN, HLD, questionable diabetes, CVA with residual slurred speech presents to the ED because of a fall. Patient stated he was walking in the hallway at home this evening when his foot got caught on a raised area on the floor and subsequently fell. He denied hitting his head, feeling dizzy, or losing consciousness. He stated he was able to get himself up and proceed normally. When his son came home he told him about the fall and his son decided to bring him into the hospital. In the ED, CT was ordered, which was negative. Troponin was negative. Patient was admitted for evaluation for possible TIA vs mechanical fall. Neurology was consulted. EEG was normal. Labs were unremarkable. As the patient was medically stable, the patient was discharged. Risk factors for TIA/stroke were discussed and patient was advised to follow up with him PMD for management. Patient was given an rx for baby aspirin on discharge. Patient was advised to return the ED if his symptoms persist. Discharge Exam - Head Exam Head Exam: ATRAUMATIC, NORMAL INSPECTION, NORMOCEPHALIC - Eye Exam Eye Exam: EOMI, Normal appearance, PERRL - ENT Exam ENT Exam: Mucous Membranes Moist - Neck Exam Neck exam: Full Rom - Respiratory Exam Respiratory Exam: Clear to PA & Lateral. absent: Rales, Rhonchi, Wheezes, Respiratory Distress - Cardiovascular Exam Cardiovascular Exam: RRR, +S1, +S2. absent: Diastolic murmur, Gallop, Rubs, Systolic Murmur - GI/Abdominal Exam GI & Abdominal Exam: Normal Bowel Sounds. absent: Guarding, Rebound - Extremities Exam Extremities exam: normal inspection - Back Exam Back exam: NORMAL INSPECTION - Neurological Exam Neurological exam: Alert, CN II-XII Intact, Oriented x3, Reflexes Normal - Psychiatric Exam Psychiatric exam: Normal Affect, Normal Mood - Skin Skin Exam: Dry, Intact, Normal Color, Warm Discharge Plan - Discharge Medications Prescriptions: Aspirin [Aspirin Chewable] 81 mg PO DAILY #15 chew - Follow Up Plan Condition: IMPROVED Disposition: HOME/ ROUTINE Instructions: Transient Ischemic Attack (DC), Heart Healthy Diet (DC), Diabetes Mellitus Type 1 in Adults (DC), Diabetes Mellitus Type 2 in Adults (DC) , Fall Prevention for Older Adults (GEN), Cholesterol and Your Health (GEN), Low Sodium Diet (DC) Additional Instructions: 1. Follow up with PMD within 1 week 2. Resume all medications as prescribed 3. Take aspirin 81 mg daily 4. Return to ED if symptoms worsen Referrals: Len Wen MD [Primary Care Provider] - <Erlin Saxena - Last Filed: 04/16/17 15:46> Provider - Provider Date of Admission: 04/15/17 22:48 Attending physician: Erlin Saxena MD Primary care physician: Len Wen MD Hospital Course - Lab Results Lab Results: Most Recent Lab Values WBC 6.6 10^3/ul (4.5-11.0) D 04/16/17 05:30 RBC 4.87 10^6/uL (3.5-6.1) 04/16/17 05:30 Hgb 13.5 g/dL (14.0-18.0) L 04/16/17 05:30 Hct 40.1 % (42.0-52.0) L 04/16/17 05:30 MCV 82.3 fl (80.0-105.0) 04/16/17 05:30 MCH 27.7 pg (25.0-35.0) 04/16/17 05:30 MCHC 33.7 g/dl (31.0-37.0) 04/16/17 05:30 RDW 13.6 % (11.5-14.5) 04/16/17 05:30 Plt Count 217 10^3/uL (120.0-450.0) 04/16/17 05:30 MPV 8.9 fl (7.0-11.0) 04/16/17 05:30 Gran % 68.4 % (50.0-68.0) H 04/16/17 05:30 Lymph % (Auto) 20.7 % (22.0-35.0) L 04/16/17 05:30 Woodson % (Auto) 9.2 % (1.0-6.0) H 04/16/17 05:30 Eos % (Auto) 1.4 % (1.5-5.0) L 04/16/17 05:30 Baso % (Auto) 0.3 % (0.0-3.0) 04/16/17 05:30 Gran # 4.53 (1.4-6.5) 04/16/17 05:30 Lymph # 1.4 (1.2-3.4) 04/16/17 05:30 Woodson # 0.6 (0.1-0.6) 04/16/17 05:30 Eos # 0.1 (0.0-0.7) 04/16/17 05:30 Baso # 0.02 K/mm3 (0.0-2.0) 04/16/17 05:30 PT 11.7 SECONDS (9.4-12.5) 04/15/17 19:31 INR 1.07 (0.93-1.08) 04/15/17 19:31 APTT 31.8 Seconds (25.1-36.5) 04/15/17 19:31 pO2 34 mm/Hg (30-55) 04/15/17 19:40 VBG pH 7.35 (7.32-7.43) 04/15/17 19:40 VBG pCO2 51.0 (40-60) 04/15/17 19:40 VBG HCO3 28.2 mmol/l (21-28) H 04/15/17 19:40 VBG Total CO2 29.8 mmol.L (22-28) H 04/15/17 19:40 VBG O2 Sat (Calc) 69.3 % (40-65) H 04/15/17 19:40 VBG Base Excess 1.7 mmol/L (0.0-2.0) 04/15/17 19:40 VBG Potassium 4.2 mmol/L (3.6-5.2) 04/15/17 19:40 Sodium 138.0 mmol/L (132-148) 04/15/17 19:40 Chloride 101.0 mmol/L (98-107) 04/15/17 19:40 Glucose 284 mg/dl (75-110) H 04/15/17 19:40 Lactate 1.5 mmol/L (0.7-2.1) 04/15/17 19:40 FiO2 21.0 % 04/15/17 19:40 Sodium 137 mmol/L (132-148) 04/16/17 05:30 Potassium 3.7 mmol/L (3.6-5.0) 04/16/17 05:30 Chloride 106 mmol/L (98-107) 04/16/17 05:30 Carbon Dioxide 21 mmol/L (21-33) 04/16/17 05:30 Anion Gap 14 (10-20) 04/16/17 05:30 BUN 16 mg/dL (7-21) 04/16/17 05:30 Creatinine 1.0 mg/dl (0.8-1.5) 04/16/17 05:30 Est GFR ( Amer) > 60 04/16/17 05:30 Est GFR (Non-Af Amer) > 60 04/16/17 05:30 Random Glucose 241 mg/dL (70-110) H 04/16/17 05:30 Hemoglobin A1c 12.9 % (4.2-6.5) H D 04/16/17 05:30 Calcium 9.1 mg/dL (8.4-10.5) 04/16/17 05:30 Magnesium 2.1 mg/dL (1.7-2.2) 04/15/17 19:31 Total Bilirubin 0.6 mg/dL (0.2-1.3) 04/16/17 05:30 AST 27 U/L (17-59) 04/16/17 05:30 ALT 45 U/L (7-56) 04/16/17 05:30 Alkaline Phosphatase 108 U/L (38-126) 04/16/17 05:30 Lactate Dehydrogenase 647 U/L (333-699) 04/15/17 19:31 Total Creatine Kinase 293 U/L (35-230) H 04/15/17 19:31 CK-MB (CK-2) 1.9 ng/mL (0.0-3.6) 04/15/17 19:31 CK-MB (CK-2) % Cancelled 04/15/17 19:31 Troponin I 0.02 ng/mL D 04/16/17 05:30 C-React Prot High Sens 9.35 mg/L (1.00-3.00) H 04/16/17 08:20 NT-Pro-B Natriuret Pep 32.4 pg/mL (0-450) 04/15/17 19:31 Total Protein 7.1 g/dL (5.8-8.3) 04/16/17 05:30 Albumin 3.7 g/dL (3.0-4.8) 04/16/17 05:30 Globulin 3.4 gm/dL 04/16/17 05:30 Albumin/Globulin Ratio 1.1 (1.1-1.8) 04/16/17 05:30 Triglycerides 133 mg/dL (35-160) 04/16/17 05:30 Cholesterol 181 mg/dL (130-200) 04/16/17 05:30 LDL Cholesterol Direct 129 mg/dL (0-129) 04/16/17 05:30 HDL Cholesterol 33 mg/dL (29-60) 04/16/17 05:30 Lipase 148 U/L (23-300) 04/15/17 19:31 Vitamin B12 391 pg/mL (239-931) 04/16/17 08:20 25-OH Vitamin D Total 19.4 NG/ML (30.0-100.0) L 04/16/17 08:20 TSH 3rd Generation 1.53 mIU/mL (0.46-4.68) 04/16/17 05:30 Venous Blood Potassium 4.2 mmol/L (3.6-5.2) 04/15/17 19:40 Urine Color Yellow (YELLOW) 04/15/17 20:16 Urine Appearance Sl cloudy (CLEAR) 04/15/17 20:16 Urine pH 6.0 (4.7-8.0) 04/15/17 20:16 Ur Specific [place] 1.025 (1.005-1.035) 04/15/17 20:16 Urine Protein 30 mg/dL (<30 mg/dL) H 04/15/17 20:16 Urine Glucose (UA) >=1000 mg/dL (NEGATIVE) 04/15/17 20:16 Urine Ketones Trace mg/dL (NEGATIVE) H 04/15/17 20:16 Urine Blood Trace-intact (NEGATIVE) H 04/15/17 20:16 Urine Nitrate Negative (NEGATIVE) 04/15/17 20:16 Urine Bilirubin Negative (NEGATIVE) 04/15/17 20:16 Urine Urobilinogen 0.2 E.U./dL (<1 E.U./dL) 04/15/17 20:16 Ur Leukocyte Esterase Negative Ines/uL (NEGATIVE) 11/15/17 20:16 Urine RBC 1 - 3 /hpf (0-2) 04/15/17 20:16 Urine WBC 2 - 5 /hpf (0-6) 04/15/17 20:16 Ur Epithelial Cells 3 - 4 /hpf (0-5) 04/15/17 20:16 Urine Bacteria Mod (NEG) 04/15/17 20:16 Attending/Attestation - Attestation I have personally seen and examined this patient.: Yes I have fully participated in the care of the patient.: Yes I have reviewed all pertinent clinical information, including history, physical exam and plan: Yes Notes (Text): 04/16/17 15:43 Patient was seen and examined with quality engineer medical device. Agreed with resident assessment and plan. 67 year old male with past medical history of HTN, Hyperlipidemia was admitted with history of fall while walking in the street.There is no evidence of any trauma.Patient was able to get up by himself.There is no focal deficit.His CT head was negative.There is no history of lose of consciousness, incontinence of urine or stool.He is ambulatory and is at his bas line.There is no neurological deficit.He is feeling at his base line. Patient will be discharged home and will follow up with PCP. Management plan was discussed in detail with patient Education was provided.
--- NOTE | 2017-04-16 22:18 | CARD ---
APPROVED REPORT EKG Measurement Heart [id number] <Conclusion> Sinus tachycardia with occasional premature ventricular complexes Possible Left atrial enlargement Left ventricular hypertrophy Abnormal ECG
[2017-04-17 05:37] LABS: HOMOCYSTEINE 12.3 umol/L (<11.4)
== END 2017-04-16 12:49 | disposition home or self-care (01) ==
LOC: ED 18:14 → ERH 22:48 → 3RSO 04-16 00:03
PROVIDERS: ADMIT Internal Medicine; ATTEND Internal Medicine
DX: R53.1 Weakness (principal); I69.328 Other speech and language deficits following cerebral infarction; I10 Essential (primary) hypertension; E11.9 Type 2 diabetes mellitus without complications; E78.5 Hyperlipidemia, unspecified; Z91.81 History of falling; Z91.14 Patient's other noncompliance with medication regimen; Z87.891 Personal history of nicotine dependence
CPT/HCPCS: 36415; 70450; 71010; 80053; 80061; 81001; 81240; 81241; 82306; 82550; 82553; 82607; 82803; 83036; 83090; 83615; 83690; 83735; 83880; 84443; 84484; 85025; 85610; 85613; 85730; 86140; 87040; 87086; 93005; 95812; 97116; 97161; 99285; G0378; G8978; G8979; G8980; J1650; J2405; J7030; J7040